=== PATIENT | female | born 1935 | race Caucasian/White ===

== ENCOUNTER 2018-09-29 10:59 | Emergency (ER) | payer MEDICARE, OTHER, SELFPAY ==
[2018-09-29 11:00] VITALS: BP 190/117; PULSE 113; RESP 31; O2SAT 98
--- NOTE | 2018-09-29 11:17 | DI.CT.S_ITS ---
PROCEDURE: CT HEAD/BRAIN WO CON INDICATIONS: cva TECHNIQUE: Noncontrast 4.5 mm thick angled axial sections acquired from the foramen magnum to the vertex, with coronal and sagittal reformats. For radiation dose reduction, the following was used: automated exposure control, adjustment of mA and/or kV according to patient size. COMPARISON: [facility], CT, HEAD WITHOUT CONTRAST, 07/19/2016, 14:10. FINDINGS: Image quality: Excellent. CSF spaces: Basal cisterns are patent. No extra-axial fluid collections. The ventricles are symmetric in size and shape. Brain: Trace subarachnoid hemorrhage is present within the left temporal lobe (series 4, image 42 and series 2, image 14). No intracranial hemorrhage. No mass. There is marked cerebral volume loss for age, with resultant ventricular and sulcal prominence. There are extensive periventricular and deep white matter chronic small vessel ischemic changes. There is intracranial internal carotid artery atherosclerosis. Skull and face: A calcified subcutaneous nodule is redemonstrated over the left calvarium unchanged from the study dated 07/19/16. Calvarium and visualized facial bones appear intact, without suspicious lesions. Sinuses: Visualized sinuses and mastoids are clear. IMPRESSION: 1. Trace subarachnoid hemorrhage as above. This finding was discussed with Dr. Ramirez at 11:28 AM on 09/29/18. 2. Extensive findings likely associated with chronic microvascular ischemic change. Dictated by: Samaria Botello M.D. on 09/29/2018 at 11:25 Approved by: Samaria Botello M.D. on 09/29/2018 at 11:29
--- NOTE | 2018-09-29 11:25 | ED.NEUROSD ---
HPI - Neuro Symptoms/Deficit General Chief Complaint: Neuro Symptoms/Deficit Stated Complaint: MAY BE HAVING STROKE Time Seen by Provider: 09/29/18 11:13 Source: family Mode of arrival: ambulatory Limitations: altered mental status History of Present Illness HPI Narrative: Patient is an 82-year-old female who was brought into the emergency department by her family for concerns of a possible stroke. Is reported by her family this morning that she potentially fell. She is on Coumadin for atrial fibrillation. Patient was complaining of a headache. Also complaining of right-sided weakness. The family states that she has been having right sided weakness with the leg greater than the arm for the past several days. They think that that is why she felt this morning. No interventions prior to arrival. Onset of symptoms approximately 1 hr prior to arrival here in the emergency department. Related Data Allergies Allergy/AdvReac Type Severity Reaction Status Date / Time No Known Drug Allergies Allergy Verified 09/29/18 12:37 Review of Systems Constitutional Denies fever(s), Reports headache(s) and Reports weakness Eyes Comments: No change in her vision ENT Ears, Nose, Mouth, and Throat: Denies dizziness, Reports headache(s) and Denies sore throat Cardiovascular Denies chest pain, Denies palpitations and Denies dyspnea Respiratory Denies dyspnea Gastrointestinal Gastrointestinal: Denies abdominal pain, Denies nausea and Denies vomiting Musculoskeletal Reports abnormal gait and Denies tingling Comments: Right arm Integumentary/Breasts Denies lesions and Denies rash Neurologic Reports abnormal gait, Reports behavioral changes, Reports confusion, Denies dizziness, Reports headache(s), Denies tingling, Denies paresthesias and Reports weakness Psychiatric Reports behavioral changes and Reports confusion Endocrine Denies palpitations Hematologic/Lymphatic Comments: On Coumadin for atrial fibrillation Allergic/Immunologic Denies urticaria PFSH Medical History Atrial fibrillation (Acute) Surgical History No pertinent past surgical history (Acute) Social History caregiver/support person: Yes Exam Initial Vital Signs Initial Vital Signs: Vital Signs Pulse Rate 113 H 09/29/18 11:00 Respiratory Rate 31 H 09/29/18 11:00 Blood Pressure 190/117 H 09/29/18 11:00 Pulse Oximetry 98 09/29/18 11:00 Const General: comfortable, well developed and No acute distress Orientation: alert, awake, oriented to person, oriented to place, not oriented to time and confused HENMT Head: normal to inspection and normocephalic Ears: other (Decreased hearing right ear) Face and sinus: normal facial exam Mouth: oral mucosae normal Eyes Pupils: PERRL Chest Chest: normal inspection of the chest Resp Effort & Inspection: normal respiratory effort Auscultation: clear to auscultation bilaterally Cardio Rate: regular rate Rhythm: abnormal rhythm Pulses: radial pulses present GI Inspection: non-distended Palpation: soft and No firm Skin Lesions: no lesions Rashes: no rashes Neuro General: alert and awake Cognition: normal cognition Motor: other Other: Patient unable to perform finger to nose with bilateral upper extremities. I did see her move all 4 extremities spontaneously however right side was difficult for her to move to command. Patient did have a left-sided gaze palsy however did look 1 time to the right when a family member asked her to. I have some concern as to whether not the patient understood what I was asking her to do. Extrem General: normal to inspection, capillary refill normal and No edema Psych Appearance: grossly normal and well kempt Course Orders Ordered: ED Orders 09/29/18 11:17 CT head/brain wo con Stat 09/29/18 11:30 Basic Metabolic Panel Stat Complete Blood Count AUTO DIFF Stat Partial Thromboplastin Time Stat Prothrombin Time INR Stat 09/29/18 11:34 CT cervical spine wo con Stat Discontinued Medications Labetalol HCl (Trandate) 5 mg IV NOW ONE Stop: 09/29/18 11:39 Last Admin: 09/29/18 11:50 Dose: 5 mg Morphine Sulfate (Morphine) 2 mg IV NOW ONE Stop: 09/29/18 12:56 Vital Signs - 8 hr 09/29/18 11:00 09/29/18 11:50 Pulse Rate 113 H 103 H Respiratory Rate 31 H Blood Pressure 190/117 H 161/117 H Pulse Oximetry 98 MDM - Neuro Symptoms/Deficit Lab Data Attestation: I reviewed the patient's lab results. Result diagrams: 09/29/18 11:30 09/29/18 11:30 Lab Results 09/29/18 09/29/18 09/29/18 Range/Units 11:30 11:30 11:30 WBC 11.2 H (4.5-11.0) X10^3/uL RBC 4.20 (4.0-5.2) X10^6/uL Hgb 13.9 (12.0-16.0) g/dL Hct 42.1 (36-46) % MCV 100.2 H (80-100) fL MCH 33.2 (26-34) PG MCHC 33.1 (30-36) % RDW 13.4 (11.6-14.8) % Plt Count 313 (150-400) X10^3/uL Neut % (Auto) 71.1 (50-75) % Lymph % (Auto) 20.6 L (25-40) % [place] % (Auto) 7.5 (3-14) % Eos % (Auto) 0.4 L (2-4) % Baso % (Auto) 0.4 (0-2) % Neut # (Auto) 8000 H (0094-8510) /uL Lymph # (Auto) 2300 (3022-8318) /uL [place] # (Auto) 800 (0-900) /uL Eos # (Auto) 0 (0-450) /uL Baso # (Auto) 0 (0-100) /uL PT 18.5 H (10.1-12.7) SECONDS INR 1.6 H (0.9-1.3) APTT 30 (26.4-36.2) SECONDS Sodium 141 (137-145) mmol/L Potassium 3.9 (3.4-5.1) mmol/L Chloride 105 (98-107) mmol/L Carbon Dioxide 24 (22-32) mmol/L BUN 21 H (7-17) mg/dL Creatinine 0.70 (0.52-1.04) mg/dL Estimated GFR > 60.0 (>60) mL/min BUN/Creatinine Ratio 30.0 H (6-22) Glucose 110 (80-110) mg/dL Calcium 9.7 (8.4-10.2) mg/dL Point of Care Testing Glucose POC [address]: Radiologist's impression: [address] [address] [address] Scan Report Signed Patient: Batsheva Tidwell BMR#: [id number] : 5Acct:[id number] Age/Sex: 82 / FDate of Service: 09/29/18 Loc: ED Accession Number: [id number] Procedure: CT head/brain wo con Ordering Provider: Edwin Ramirez D.O. PROCEDURE: CT HEAD/BRAIN WO CON INDICATIONS: cva TECHNIQUE: Noncontrast 4.5 mm thick angled axial sections acquired from the foramen magnum to the vertex, with coronal and sagittal reformats. For radiation dose reduction, the following was used: automated exposure control, adjustment of mA and/or kV according to patient size. COMPARISON: [facility], CT, HEAD WITHOUT CONTRAST, 07/19/2016, 14:10. FINDINGS: Image quality: Excellent. CSF spaces: Basal cisterns are patent. No extra-axial fluid collections. The ventricles are symmetric in size and shape. Brain: Trace subarachnoid hemorrhage is present within the left temporal lobe (series 4, image 42 and series 2, image 14). No intracranial hemorrhage. No mass. There is marked cerebral volume loss for age, with resultant ventricular and sulcal prominence. There are extensive periventricular and deep white matter chronic small vessel ischemic changes. There is intracranial internal carotid artery atherosclerosis. Skull and face: A calcified subcutaneous nodule is redemonstrated over the left calvarium unchanged from the study dated 07/19/16. Calvarium and visualized facial bones appear intact, without suspicious lesions. Sinuses: Visualized sinuses and mastoids are clear. IMPRESSION: 1. Trace subarachnoid hemorrhage as above. This finding was discussed with Dr. Ramirez at 11:28 AM on 09/29/18. 2. Extensive findings likely associated with chronic microvascular ischemic change. Dictated by: Samaria Botello M.D. on 09/29/2018 at 11:25 Approved by: Samaria Botello M.D. on 09/29/2018 at 11:29 CT cervical spine: Radiologist's impression: PROCEDURE: CT CERVICAL SPINE WO CON INDICATIONS: fall TECHNIQUE: Noncontrast 3 mm thick sections acquired from the skull base to the T4 level. Sagittal and coronal reformats were then constructed. For radiation dose reduction, the following was used: automated exposure control, adjustment of mA and/or kV according to patient size. COMPARISON: [facility], CT, C-SPINE W/O CONTRAST, 10/07/2013, 17:39. FINDINGS: Image quality: Excellent. Bones: No fractures or dislocations. Moderate to severe degenerative changes present of the cervical spine including intervertebral disc space narrowing, endplate sclerosis, osteophytosis, and subchondral cystic change. Visualized superior ribs are intact. Patient is status post right mastoidectomy. Soft tissues: Prevertebral soft tissues are normal in thickness. No paravertebral hematomas. No apical pneumothoraces. 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 Low-density fluid is present at the ascending thoracic aorta which is incompletely characterized on this limited view of the chest. IMPRESSION: 1. No acute cervical spine injury. 2. Small amount of pericardial fluid adjacent to the ascending thoracic aorta which is incompletely characterized. If there is clinical suspicion for pericardial effusion, echocardiogram maybe helpful. Dictated by: Samaria Botello M.D. on 09/29/2018 at 12:10 Approved by: Samaria Botello M.D. on 09/29/2018 at 12:14 ECG Data Attestation: I personally reviewed and interpreted this ECG as follows: Prior ECG tracings: not available for review Interpretation: Atrial fibrillation Ventricular rate of 1 9 Normal axis Normal QRS Wandering baseline No ST T wave changes MDM Narrative Medical decision making narrative: Patient with a subarachnoid hemorrhage on the left. Described as trace by the radiologist. This does fit with the potential fall that she had this morning. INR is 1.6 today. Was not given reversal here in the emergency department. Initial blood pressure was systolic greater than 190s and diastolic greater than 100. She was given 5 mg labetalol which improved her symptoms. Patient in atrial fibrillation but has a known history of atrial fibrillation. Patient with right-sided neglect. Very difficult to obtain neurologic exam. Was unsure as to whether not the patient understood what I was asking her to do. Family does state that she has had a right sided weakness for the past several days if not longer. They think that that is why she fell this morning. Head CT shows no signs of an ischemic infarct. Given the potential trace subarachnoid patient is not a candidate for tPA. Patient was placed in a cervical collar. Remained in a cervical collar for transport. Patient's neurologic symptoms today do not necessarily fit what I would expect with a trace left-sided subarachnoid. I discussed the case with the trauma attending Dr. Vuong at [facility] who accepts the patient. He did ask me to talk with Neurology. I discussed the case with Dr. Villafana was the Stroke attending who stated that they would see the patient upon arrival and agreed with no tPA. Discussed the transport with the patient and also the family who are bedside. They expressed understanding and agreement. Patient is stable for transport. Discharge Plan Departure Patient Disposition: [facility] Clinical Impression: Subarachnoid hemorrhage, Fall, Atrial fibrillation
[2018-09-29 11:30] VITALS: BP 167/151; PULSE 96; RESP 26; O2SAT 97
--- NOTE | 2018-09-29 11:34 | DI.CT.S_ITS ---
PROCEDURE: CT CERVICAL SPINE WO CON INDICATIONS: fall TECHNIQUE: Noncontrast 3 mm thick sections acquired from the skull base to the T4 level. Sagittal and coronal reformats were then constructed. For radiation dose reduction, the following was used: automated exposure control, adjustment of mA and/or kV according to patient size. COMPARISON: [facility], CT, C-SPINE W/O CONTRAST, 10/07/2013, 17:39. FINDINGS: Image quality: Excellent. Bones: No fractures or dislocations. Moderate to severe degenerative changes present of the cervical spine including intervertebral disc space narrowing, endplate sclerosis, osteophytosis, and subchondral cystic change. Visualized superior ribs are intact. Patient is status post right mastoidectomy. Soft tissues: Prevertebral soft tissues are normal in thickness. No paravertebral hematomas. No apical pneumothoraces. 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 Low-density fluid is present at the ascending thoracic aorta which is incompletely characterized on this limited view of the chest. IMPRESSION: 1. No acute cervical spine injury. 2. Small amount of pericardial fluid adjacent to the ascending thoracic aorta which is incompletely characterized. If there is clinical suspicion for pericardial effusion, echocardiogram maybe helpful. Dictated by: Samaria Botello M.D. on 09/29/2018 at 12:10 Approved by: Samaria Botello M.D. on 09/29/2018 at 12:14
[2018-09-29 11:42] LABS: Add Manual Diff / Slide Review NO; Basophils Absolute Auto 0 /uL (0-100); Basophils Percent Auto 0.4 % (0-2); Eosinophils Absolute Auto 0 /uL (0-450); Eosinophils Percent Auto 0.4 % (2-4); Hematocrit 42.1 % (36-46); Hemoglobin 13.9 g/dL (12.0-16.0); Lymphocytes Absolute Auto 2300 /uL (1100-4500); Lymphocytes Percent Auto 20.6 % (25-40); Mean Corpuscular HGB Conc 33.1 % (30-36); Mean Corpuscular Hemoglobin 33.2 PG (26-34); Mean Corpuscular Volume 100.2 fL (80-100); Monocytes Absolute Auto 800 /uL (0-900); Monocytes Percent Auto 7.5 % (3-14); Neutrophils Absolute Auto 8000 /uL (1500-7000); Neutrophils Percent Auto 71.1 % (50-75); Platelet Count 313 X10^3/uL (150-400); Red Cell Distribution Width 13.4 % (11.6-14.8); White Blood Cell Count 11.2 X10^3/uL (4.5-11.0)
[2018-09-29 11:50] VITALS: BP 161/117; PULSE 103
[2018-09-29] MEDS: LABETALOL 20 MG/4 ML SYRINGE 5 MG IV (11:50)
[2018-09-29 11:51] LABS: INR 1.6 (0.9-1.3); Prothrombin Time 18.5 SECONDS (10.1-12.7)
[2018-09-29 11:54] LABS: PTT Partial Thromboplastin Tim 30 SECONDS (26.4-36.2)
[2018-09-29 11:55] LABS: Blood Urea Nitrogen 21 mg/dL (7-17); Calcium 9.7 mg/dL (8.4-10.2); Carbon Dioxide 24 mmol/L (22-32); Chloride 105 mmol/L (98-107); Estimated Glomerular Filt Rate > 60.0 mL/min (>60); Glucose 110 mg/dL (80-110); HEMOLYSIS < 15 (0-50); Potassium 3.9 mmol/L (3.4-5.1); Sodium 141 mmol/L (137-145)
[2018-09-29 12:30] VITALS: BP 160/91; RESP 20; O2SAT 95
[2018-09-29 13:00] VITALS: BP 153/84; PULSE 102
[2018-09-29 13:28] VITALS: BP 153/84; PULSE 100; RESP 22; O2SAT 93
[2018-09-29] MEDS: MORPHINE 4 MG/ML INJ 2 MG IV (13:45)
[2018-09-29] MEDS: ONDANSETRON 4 MG/2 ML INJ IV (13:52)
== END 2018-09-29 13:50 | disposition short-term general hospital (02) ==
PROVIDERS: Emergency Provider Emergency Medicine; Family Provider Family Medicine; PCP Family Medicine
DX: S06.6X9A Traumatic subarachnoid hemorrhage with loss of consciousness of unspecified duration, initial encounter (principal); W18.30XA Fall on same level, unspecified, initial encounter; I48.91 Unspecified atrial fibrillation; Z79.01 Long term (current) use of anticoagulants
CPT/HCPCS: 36591; 70450; 72125; 80048; 82962; 85025; 85610; 85730; 93005; 96374; 96375; 99283; 99291; 99292; J2270; J2405

== ENCOUNTER 2022-03-06 10:22 | Emergency (ER) | payer MEDICARE, OTHER, SELFPAY ==
[2022-03-06] VITALS (15 sets, daily range): BP systolic 136–163; BP diastolic 63–113; PULSE 79–99; RESP 11–25; TEMP 37.7; O2SAT 91–96; BMI 21.0
--- NOTE | 2022-03-06 11:01 | DI.CT.S_ITS ---
PROCEDURE: CT HEAD/BRAIN WO CON INDICATIONS: stroke TECHNIQUE: Noncontrast 4.5 mm thick angled axial sections acquired from the foramen magnum to the vertex, with coronal and sagittal reformats. For radiation dose reduction, the following was used: automated exposure control, adjustment of mA and/or kV according to patient size. COMPARISON: None. FINDINGS: Image quality: Excellent. CSF spaces: Basal cisterns are patent. No extra-axial fluid collections. The ventricles are symmetric in size and shape. Brain: There is loss of dennis-white matter differentiation within the superior aspect of the left frontoparietal lobe. There is mild sulcal effacement. Additional region of dennis-white matter loss with slight sulcal effacement of the left occipital lobe. Adjacent region of increased density consistent with acute hemorrhage is noted measuring 1.3 x 0.8 cm. Additional region of hemorrhage is noted within the medial right posterior temporal lobe measuring 0.9 x 1.5 cm. There is cerebral volume loss for age, with resultant ventricular and sulcal prominence. There are periventricular and deep white matter chronic small vessel ischemic changes. There is intracranial vascular atherosclerosis. Skull and face: Calvarium and visualized facial bones appear intact, without suspicious lesions. Soft tissue calcified nodular density along the right cranial vertex. Sinuses: There is opacification of the left maxillary sinus with periosteal wall thickening noted adjacently. Mild mucosal disease of the ethmoid air cells. IMPRESSION: Findings concerning for multifocal infarction with findings of dennis-white matter loss of the superior left frontoparietal region as well as the left occipital lobe. There is hemorrhagic conversion of the left frontoparietal lobe as well as additional region of acute hemorrhage within the medial right temporal lobe. These findings were discussed with the ordering provider Dr. Nathaniel Rick by Dr. Venkata Casey over the telephone at approximately 10:40 a.m. [place] Standard time on 03/06/2022. Findings of chronic sinusitis of the left maxillary sinus. Dictated by: Venkata Casey D.O. on 03/06/2022 at 10:34 Approved by: Venkata Casey D.O. on 03/06/2022 at 10:47
[2022-03-06 11:18] LABS: Add Manual Diff / Slide Review NO; Basophils Absolute Auto 0 /uL (0-100); Basophils Percent Auto 0.6 % (0-2); Eosinophils Absolute Auto 0 /uL (0-450); Hematocrit 39.7 % (36-46); Hemoglobin 13.3 g/dL (12.0-16.0); Lymphocytes Absolute Auto 1600 /uL (1100-4500); Lymphocytes Percent Auto 25.1 % (25-40); Mean Corpuscular HGB Conc 33.4 % (30-36); Mean Corpuscular Hemoglobin 33.2 PG (26-34); Mean Corpuscular Volume 99.3 fL (80-100); Monocytes Absolute Auto 1000 /uL (0-900); Neutrophils Absolute Auto 3800 /uL (1500-7000); Neutrophils Percent Auto 58.3 % (50-75); Platelet Count 254 X10^3/uL (150-400); Red Cell Distribution Width 14.2 % (11.6-14.8); White Blood Cell Count 6.5 X10^3/uL (4.5-11.0)
[2022-03-06 11:27] LABS: Alanine Aminotransferase 49 IU/L (<35); Albumin 4.3 g/dL (3.5-5.0); Alkaline Phosphatase 111 U/L (38-126); Aspartate Aminotransferase 61 IU/L (14-36); BUN Creatinine Ratio 23.3 (6-22); Bilirubin Total 0.4 mg/dL (0.2-1.3); Blood Urea Nitrogen 20 mg/dL (7-17); Carbon Dioxide 26 mmol/L (22-32); Chloride 97 mmol/L (98-107); Creatine Kinase 145 U/L (30-135); Estimated Glomerular Filt Rate > 60 mL/min (>60); Ethanol (ETOH) < 10 mg/dL; Globulin 4.1 g/dL (1.7-4.1); Glucose 95 mg/dL (80-110); HEMOLYSIS < 15 (0-50); Sodium 135 mmol/L (137-145); Total Protein 8.4 g/dL (6.3-8.2)
[2022-03-06] MEDS: SODIUM CHLORIDE 0.9% 1,000 ML 150 ML IV (11:27)
[2022-03-06 11:38] LABS: Troponin I < 0.012 ng/mL (0.01-0.034)
[2022-03-06 11:42] LABS: CKMB % Relative Index 1.7 % (1.5-5.0); Creatine Kinase MB 2.45 ng/mL (<2.37)
[2022-03-06 12:00] LABS: COVID19 -Nasal RAPID POSITIVE (Negative)
--- NOTE | 2022-03-06 12:00 | PC.NURSE ---
Covid Pos++ per [facility] in lab @1200, physician notified and confirmed.
[2022-03-06] MEDS: PROTHROMBIN CPLX(PCC)4FACT 2,000 UNIT in ISOOSMOTIC VEHICLE 0 ML 375.574 UNIT IV (12:36)
[2022-03-06 13:41] LABS: Appearance Urine UA CLEAR; Bilirubin Urine UA NEGATIVE (NEGATIVE); Color Urine UA YELLOW; Glucose Urine UA NEGATIVE (Negative); Ketones Urine UA 1+ (NEGATIVE); Leukocyte Esterase Urine UA NEGATIVE (NEGATIVE); Nitrite Urine UA NEGATIVE (Negative); Occult Blood Urine UA 1+ (Negative); Protein Urine UA 1+ (Negative); Urobilinogen Urine UA 0.2 E.U./dL (0.2)
[2022-03-06 13:50] LABS: Amorphous Sediment Urine 1+; Bacteria Urine Occasional (0-1); Culture Indicated Urine Cult Not Indicated; RBC Urine 1-5/HPF (0-5/HPF); Squamous Epithelial Cell Urine 1-5 /HPF (0-5/HPF); WBC Urine 0-1/HPF (0-5/HPF)
--- NOTE | 2022-03-06 20:56 | ED_ITS ---
HPI - Weakness General Chief complaint: Weakness Stated complaint: weak, lathergic, fell on monday & this morning,TIA Time Seen by Provider: 03/06/22 10:32 Source: patient Mode of arrival: Ambulatory History of Present Illness HPI Narrative: Family accompanies the patient to the ED and says that the patient had a relatively normal day on Monday but on Monday at about 3 in the morning she was found on the floor incontinent of urine. A granddaughter lives in the home with her and checks on her hourly through the night. When they tried to get her back in bed early Monday he was noted that her right lower extremity which is normally somewhat weak, was much more weak than expected. She needed quite a bit of assistance to get back in bed. No medical attention was sought at that time and during the day she seemed to be improving so no further thought was given to evaluation during the day on Monday. Early in the morning this morning Monday, she again was found on the floor around 3 in the morning incontinent of stool and urine and was found to be unable to control her trunk and seemed to list to the right quite a bit. Today the daughter came to the house to evaluate as well and found that she was really profoundly more weak on the right side specifically in her leg. The patient complains of earach e. So the last known well was Monday. Related Data Allergies Allergy/AdvReac Type Severity Reaction Status Date / Time No Known Drug Allergies Allergy Verified 09/29/18 12:37 Review of Systems Review of Systems Narrative: Review of systems is significantly limited because the patient is seems to not completely be aware of her self. She denies any symptoms of illness other than earache. Patient History Medical History (Updated 03/06/22 @ 17:37 by Nathaniel Cali MD) Atrial fibrillation Surgical History (Updated 09/29/18 @ 13:00 by Edwin Ramirez DO) No pertinent past surgical history Social History (Updated 09/29/18 @ 13:00 by Edwin Ramirez DO) caregiver/support person: Yes Smoking Status: Never smoker Smoking Status: Never smoker Substance Use Type: does not use Exam Narrative Exam Narrative: GENERAL: Alert, cooperative and in no distress. HEAD: Atraumatic. Normocephalic. EYES: Sclera are clear without icterus. Extraocular movements are full. ENT: No rhinorrhea. Oropharynx is moist. Mouth exam is benign. 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 No erythema or drainage. Left ear drum is not visualized because of cerumen impaction. NECK: Supple. Full range of motion. CARDIOVASCULAR: Normal rate and rhythm without murmur gallop or rub. RESPIRATORY: Clear to auscultation. Breath sounds equal bilaterally. No wheezes, rales, or rhonchi. GASTROINTESTINAL: Abdomen soft, non-tender, nondistended. EXTREMITIES: No edema, full range of motion. No obvious trauma. BACK: Normal inspection, no CVA tenderness. NEURO: NIH stroke score of 3. Two points for weakness in the right lower extremity. 1 point for not stating the year properly, one point for decreased sharp sensation in the right lower extremity. SKIN: No rash or erythema of visible areas PSYCH: Normally oriented. Normal range of affect. Appropriate behavior Initial Vital Signs Initial Vital Signs: Vital Signs Temperature 100 F H 03/06/22 10:25 Pulse Rate 87 03/06/22 10:25 Respiratory Rate 20 03/06/22 10:25 Blood Pressure 143/108 H 03/06/22 10:25 Pulse Oximetry 95 03/06/22 10:25 Oxygen Delivery Method 03/06/22 10:25 Scores NIH Stroke Scale Level of Conciousness: Alert, keenly responsive Ask month/age: Answers one question correctly, intubated follow commands Open/close eyes, close hand: Performs both tasks correctly Best gaze horizontal: Normal Visual freed: No visual loss Facial palsy: Normal symetrical movement Left arm drift: No drift for full 10 sec Right arm drift: No drift for full 10 sec Left leg drift: No drift for full 5 sec Right leg drift: Some effort against gravity, cannot maintain, drifts down to bed Limb ataxia: Absent Sensory on face/arms/legs: Mild to moderate sensory loss, can tell touch Best language: No aphasia, normal Dysarthria: Normal Extinction or inattention: No abnormality Total NIH Stroke scale score: 4 Course Course Course Narrative: 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 The patient and the family would like potential intervention if indicated so transfer to a tertiary facility where neurosurgery is available is sought. Orders Ordered: ED Orders 03/06/22 12:43 Urinalysis and Microscopic Stat Discontinued Medications Sodium Chloride (Normal Saline 0.9%) 1,000 mls @ 150 mls/hr IV CONT JARED Last Infusion: 03/06/22 17:34 Dose: 0 mls/hr Documented By: Admin: 03/06/22 11:27 Dose: 150 mls/hr Documented By: JAYDE Prothrombin Complex Concent ( Human) 2,000 unit/Miscellaneous 80 mls @ 375.574 mls/hr IV NOW ONE; Protocol Stop: 03/06/22 12:14 Last Infusion: 03/06/22 13:01 Dose: 0 unit/kg/min, 0 mls/hr Documented By: Admin: 03/06/22 12:36 Dose: 3 unit/kg/min, 375.574 mls/hr Documented By: JAYDE Consultations Consultation #1: Discussed the case with Dr. Woods from [facility]. Vital Signs Vital signs: Vital Signs - 8 hr 03/06/22 13:00 03/06/22 13:30 03/06/22 13:31 Pulse Rate 95 H 86 Blood Pressure 152/68 H Pulse Oximetry 96 95 03/06/22 13:31 03/06/22 14:00 03/06/22 14:01 Pulse Rate 90 79 Blood Pressure 136/63 Pulse Oximetry 95 93 03/06/22 14:01 03/06/22 14:30 03/06/22 14:30 Pulse Rate 85 89 Blood Pressure 155/72 H Pulse Oximetry 93 92 MDM - Weakness Lab Data Result diagrams: 03/06/22 11:02 03/06/22 11:02 Labs: Lab Results 03/06/22 03/06/22 03/06/22 Range/Units 11:02 11:02 11:32 WBC 6.5 (4.5-11.0) X10^3/uL RBC 4.00 (4.0-5.2) X10^6/uL Hgb 13.3 (12.0-16.0) g/dL Hct 39.7 (36-46) % MCV 99.3 (80-100) fL MCH 33.2 (26-34) PG MCHC 33.4 (30-36) % RDW 14.2 (11.6-14.8) % Plt Count 254 (150-400) X10^3/uL Neut % (Auto) 58.3 (50-75) % Lymph % (Auto) 25.1 (25-40) % [place] % (Auto) 16.0 H (3-14) % Eos % (Auto) 0.0 L (2-4) % Baso % (Auto) 0.6 (0-2) % Neut # (Auto) 3800 (7432-6799) /uL Lymph # (Auto) 1600 (8365-9323) /uL [place] # (Auto) 1000 H (0-900) /uL Eos # (Auto) 0 (0-450) /uL Baso # (Auto) 0 (0-100) /uL Sodium 135 L (137-145) mmol/L Potassium 4.0 (3.4-5.1) mmol/L Chloride 97 L (98-107) mmol/L Carbon Dioxide 26 (22-32) mmol/L BUN 20 H (7-17) mg/dL Creatinine 0.86 (0.52-1.04) mg/dL Estimated GFR > 60 (>60) mL/min BUN/Creatinine Ratio 23.3 H (6-22) Glucose 95 (80-110) mg/dL Calcium 9.0 (8.4-10.2) mg/dL Total Bilirubin 0.4 (0.2-1.3) mg/dL AST 61 H (14-36) IU/L ALT 49 H (<35) IU/L Alkaline Phosphatase 111 (38-126) U/L Total Creatine Kinase 145 H (30-135) U/L CK-MB (CK-2) 2.45 H (<2.37) ng/mL CK-MB (CK-2) Rel Index 1.7 (1.5-5.0) % Troponin I < 0.012 (0.01-0.034) ng/mL Total Protein 8.4 H (6.3-8.2) g/dL Albumin 4.3 (3.5-5.0) g/dL Globulin 4.1 (1.7-4.1) g/dL Albumin/Globulin Ratio 1.0 (1.0-2.8) Urine Color Urine Appearance Urine pH (4.5-8.0) Ur Specific [place] (1.000-1.035) Urine Protein (Negative) Urine Glucose (UA) (Negative) g/dL Urine Ketones (NEGATIVE) Urine Occult Blood (Negative) Urine Nitrate (Negative) Urine Bilirubin (NEGATIVE) Urine Urobilinogen (0.2) E.U./dL Ur Leukocyte Esterase (NEGATIVE) Urine RBC (0-5/HPF) Urine WBC (0-5/HPF) Ur Squamous Epith Cells (0-5/HPF) Amorphous Sediment Urine Bacteria (None) Ur Culture Indicated? Ethyl Alcohol < 10 ( - 10) mg/dL SARS-CoV-2 (PCR) Positive H (Negative) 03/06/22 Range/Units 12:43 WBC (4.5-11.0) X10^3/uL RBC (4.0-5.2) X10^6/uL Hgb (12.0-16.0) g/dL Hct (36-46) % MCV (80-100) fL MCH (26-34) PG MCHC (30-36) % RDW (11.6-14.8) % Plt Count (150-400) X10^3/uL Neut % (Auto) (50-75) % Lymph % (Auto) (25-40) % [place] % (Auto) (3-14) % Eos % (Auto) (2-4) % Baso % (Auto) (0-2) % Neut # (Auto) (1247-6196) /uL Lymph # (Auto) (9825-3650) /uL [place] # (Auto) (0-900) /uL Eos # (Auto) (0-450) /uL Baso # (Auto) (0-100) /uL Sodium (137-145) mmol/L Potassium (3.4-5.1) mmol/L Chloride (98-107) mmol/L Carbon Dioxide (22-32) mmol/L BUN (7-17) mg/dL Creatinine (0.52-1.04) mg/dL Estimated GFR (>60) mL/min BUN/Creatinine Ratio (6-22) Glucose (80-110) mg/dL Calcium (8.4-10.2) mg/dL Total Bilirubin (0.2-1.3) mg/dL AST (14-36) IU/L ALT (<35) IU/L Alkaline Phosphatase (38-126) U/L Total Creatine Kinase (30-135) U/L CK-MB (CK-2) (<2.37) ng/mL CK-MB (CK-2) Rel Index (1.5-5.0) % Troponin I (0.01-0.034) ng/mL Total Protein (6.3-8.2) g/dL Albumin (3.5-5.0) g/dL Globulin (1.7-4.1) g/dL Albumin/Globulin Ratio (1.0-2.8) Urine Color Yellow Urine Appearance Clear Urine pH 5.0 (4.5-8.0) Ur Specific [place] 1.010 (1.000-1.035) Urine Protein 1+ H (Negative) Urine Glucose (UA) Negative (Negative) g/dL Urine Ketones 1+ H (NEGATIVE) Urine Occult Blood 1+ H (Negative) Urine Nitrate Negative (Negative) Urine Bilirubin Negative (NEGATIVE) Urine Urobilinogen 0.2 (0.2) E.U./dL Ur Leukocyte Esterase Negative (NEGATIVE) Urine RBC 1-5/hpf (0-5/HPF) Urine WBC 0-1/hpf (0-5/HPF) Ur Squamous Epith Cells 1-5 /hpf (0-5/HPF) Amorphous Sediment 1+ Urine Bacteria Occasional (0-1) (None) Ur Culture Indicated? Cult not indicated Ethyl Alcohol ( - 10) mg/dL SARS-CoV-2 (PCR) (Negative) Urine Dip Bedside Urine Glucose Negative Bedside Urine Bilirubin - Negative Bedside Urine Ketone +/- 5 Urine Specific [place] 1.015 Bedside Urine Occult Blood +/- Bedside Urine pH 6 Bedside Urine Protein + 30 Bedside Urine Urobilinogen - Negative Bedside Urine Nitrite - Negative Bedside Urine Leukocytes - Negative Esterase Imaging Data CT scan - head: Radiologist Impression: [address] [address] [address] Scan Report Signed Patient: Batsheva Tidwell MR#: [id number] : 1935 Acct:[id number] Age/Sex: 86 / F Date of Service: 03/06/22 Loc: ED Accession Number: [id number] ?? Procedure: CT head/brain wo con Ordering Provider: Nathaniel Cali MD PROCEDURE:? CT HEAD/BRAIN WO CON ? INDICATIONS:? stroke ? TECHNIQUE:? Noncontrast 4.5 mm thick angled axial sections acquired from the foramen magnum to the vertex, with coronal and sagittal reformats.? For radiation dose reduction, the following was used:? automated exposure control, adjustment of mA and/or kV according to patient size.? ? COMPARISON:? None. ? FINDINGS:? Image quality:? Excellent.? ? CSF spaces:? Basal cisterns are patent.? No extra-axial fluid collections.? The ventricles are symmetric in size and shape.? ? Brain:? There is loss of dennis-white matter differentiation within the superior aspect of the left frontoparietal lobe.? There is mild sulcal effacement.? Additional region of dennis-white matter loss with slight sulcal effacement of the left occipital lobe.? Adjacent region of increased density consistent with acute hemorrhage is noted measuring 1.3 x 0.8 cm.? Additional region of hemorrhage is noted within the medial right posterior temporal lobe measuring 0.9 x 1.5 cm.? There is cerebral volume loss for age, with resultant ventricular and sulcal prominence.? There are periventricular and deep white matter chronic small vessel ischemic changes.? There is intracranial vascular atherosclerosis. ? Skull and face:? Calvarium and visualized facial bones appear intact, without suspicious lesions.? Soft tissue calcified nodular density along the right cranial vertex. ? Sinuses:? There is opacification of the left maxillary sinus with periosteal wall thickening noted adjacently.? Mild mucosal disease of the ethmoid air cells. ? IMPRESSION:? ? Findings concerning for multifocal infarction with findings of dennis-white matter loss of the superior left frontoparietal region as well as the left occipital lobe.? There is hemorrhagic conversion of the left frontoparietal lobe as well as additional region of acute hemorrhage within the medial right temporal lobe. ? These findings were discussed with the ordering provider Dr. Nathaneil Rick by Dr. Venkata Casey over the telephone at approximately 10:40 a.m. [place] Standard time on 03/06/2022. ? 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 ? Dictated by: Venkata Casey D.O. on 03/06/2022 at 10:34 ? ? Approved by: Venkata Casey D.O. on 03/06/2022 at 10:47 ? MDM Narrative Medical decision making narrative: This patient is not a tPA candidate because of time line and because of anticoagulants. Because of the hemorrhagic stroke we did administer Kcentra. No blood pressure management was required as she maintained a systolic pressure just under 160 mmHg. We did not do CT angiography because I did not want to delay the transfer and she is not a candidate for interventional radiology treatment of a large vessel occlusion as she is outside the time window for that as well. Critical Care Time Critical Care Time Critical Care Time: Yes Total Critical Care Time: 45 Attestation: Critical care time is for interpretation of results, obtaining history from patient and surrogate, assessing response to treatments, discussion with consultants. Discharge Plan Departure Patient Disposition: [facility] Clinical Impression: Stroke Referrals: Miguel Sprague MD [Primary Care Provider] -
== END 2022-03-06 15:37 | disposition short-term general hospital (02) ==
PROVIDERS: Emergency Provider Family Medicine Addiction Medicine; Family Provider Family Medicine; PCP Family Medicine
DX: I61.9 Nontraumatic intracerebral hemorrhage, unspecified (principal); Z79.01 Long term (current) use of anticoagulants; U07.1 COVID-19
CPT/HCPCS: 36415; 70450; 80053; 80320; 81001; 81003; 82550; 82553; 84484; 85025; 87635; 96365; 99284; 99291; C9803; J7168

== ENCOUNTER 2022-04-01 22:15 | Emergency (ER) | payer MEDICARE, OTHER, SELFPAY ==
[2022-04-01 22:25] VITALS: BP 153/96; PULSE 91; RESP 19; TEMP 36.8; O2SAT 95
--- NOTE | 2022-04-01 22:25 | DI.CT.S_ITS ---
PROCEDURE: CT ABDOMEN PELVIS W CON INDICATIONS: abd pain, lower abd TECHNIQUE: After the administration of IV contrast, axial sections were acquired from the lung bases to the pubic symphysis. Coronal and sagittal reformats were performed. For radiation dose reduction, the following was used: automated exposure control, adjustment of mA and/or kV according to patient size. COMPARISON: [facility], CT, CHEST/ABDOMEN WITH AND WITHOUT CONTRAST, 03/01/2012, 22:23. FINDINGS: Image quality: Excellent. Lung bases: There is right posterior pleural thickening with associated plaque-like pleural calcification redemonstrated. Findings likely represent sequelae of prior trauma or infection. In the right lower lobe, there is a 0.7 cm pulmonary nodule on series 5, image 12 which appears unchanged compared to the prior study given differences in technique. Heart: Heart size is mildly enlarged. ABDOMEN: Liver: Multiple small hypodense foci are demonstrated throughout the liver. The findings are too small to characterize but likely represent small cysts or biliary hamartomas. Gallbladder: Within normal limits without calcified gallstones. Biliary ducts: No biliary ductal dilatation. Pancreas: There is a small oval cystic lesion within the pancreatic head measuring approximately 0.6 cm on series 2, image 33. This appears minimally increased in size from 0.5 cm previously. Spleen: Normal in size. Adrenal Glands: No adrenal nodules. Kidneys and Ureters: No hydronephrosis. There are heterogeneous areas of enhancement in the left kidney inferiorly with peripheral regions of non enhancement. 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 No associated perinephric stranding. The right kidney demonstrates no hydronephrosis. There are few small right renal cysts. Stomach and Bowel: Stomach, small bowel loops, and colon are normal in caliber and wall thickness. No pericecal inflammatory changes to suggest appendicitis. Peritoneum: No abnormal intraperitoneal fluid. No free air. Ventral Wall: No hernia. Abdominal Nodes: No retroperitoneal or mesenteric adenopathy by size criteria. Vessels: Aorta and inferior vena cava are normal in size. PELVIS: Pelvic Organs: The uterus is surgically absent. Bladder: Unremarkable. Pelvic Nodes: No enlarged lymph nodes. Miscellaneous: No inguinal hernias are seen. Bones: Visualized osseous structures demonstrate no suspicious focal lesions. IMPRESSION: 1. Heterogeneous enhancement of the left kidney with peripheral areas of non enhancement. 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 The differential includes pyelonephritis although this is considered less likely in the absence of associated perinephric stranding. Recommend correlation clinically. 2. 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 A follow-up CT may be performed in 2 years to demonstrate stability if clinically indicated. Dictated by: Paulie Cline M.D. on 04/01/2022 at 23:56 Approved by: Paulie Cline M.D. on 04/02/2022 at 0:05
--- NOTE | 2022-04-01 22:28 | ED_ITS ---
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 Patient presents with complaint of lower abdominal pain she also describes some bilateral lower back discomfort. She denies fevers she states she is had some nausea and vomiting but describes it more as dry heaves. She denies any chest pain or shortness of breath. No syncope. Patient tells me she is had several loose bowel movements, denies melena or hematochezia, denies any dysuria, urgency or frequency or difficulty with urination. She denies any vaginal bleeding or discharge. She states abdominal pain started in the last day. Patient also notes that her left eye feels irritated especially like there is something stuck underneath the eyelid. She denies any discharge. She denies prior surgeries. No known drug allergies. She states she used to take Eliquis but denies currently. She is unsure of her other prescription medications. Denies tobacco, alcohol or illicit. States her primary care is Dr. Sprague. Patient states she lives with her [id number]. Related Data Previous Rx's Medication Instructions Recorded cephalexin 500 mg capsule 500 mg PO BID #10 caps 04/02/22 erythromycin 5 mg/gram (0.5 %) eye 0.5 inch EYE-LEFT BID 5 days #3.5 04/02/22 ointment grams Allergies Allergy/AdvReac Type Severity Reaction Status Date / Time No Known Drug Allergies Allergy Verified 09/29/18 12:37 Review of Systems Review of Systems ROS Unobtainable: All systems reviewed & are unremarkable except as noted in HPI and below Patient History Medical History Atrial fibrillation Surgical History No pertinent past surgical history Social History caregiver/support person: Yes Smoking Status: Never smoker Smoking Status: Never smoker alcohol intake frequency: 0-2 drinks per day Substance Use Type: does not use Exam Narrative Exam Narrative: GEN: well nourished, well appearing female, alert and oriented, patient appears to be in mild distress. HEENT: Atraumatic, pupils are equal round reactive to light, extraocular movements are intact, patient has swelling of the upper eyelid underneath consistent with chalazion, no foreign body, no injection of the conjunctiva, nares are clear, TMs are clear with no fluid, there is no conjunctival pallor. Throat is clear without any exudates, erythema, tonsillar enlargement or uvular deviation HEART: Regular rate and rhythm without murmur, clicks, rubs. pulses are equal in upper and lower extremities LUNGS:Lungs clear to auscultation, no wheezes, rales, crackles, chest moves symmetrically ABD:bowel sounds normal, soft, mild bilateral lower quadrant tenderness, no guarding, rebound, rigidity, no masses noted, no hepatosplenomegaly, no pulsatile mass, no bruit. :No CVA tenderness MSCL: Non-tender, no muscle atrophy, muscles strength 5/5 upper and lower extremities, full range of motion, normal gait NEURO:CN 2-12 intact, sensation normal SKIN: No rash, erythema or other skin changes Initial Vital Signs Initial Vital Signs: Vital Signs Temperature 98.2 F 04/01/22 22:25 Pulse Rate 91 H 04/01/22 22:25 Respiratory Rate 19 04/01/22 22:25 Blood Pressure 153/96 H 04/01/22 22:25 Pulse Oximetry 95 04/01/22 22:25 Oxygen Delivery Method 04/01/22 22:25 Course Orders Ordered: Discontinued Medications Cephalexin HCl (Cephalexin 250 Mg Capsule) 500 mg PO NOW ONE Stop: 04/02/22 00:56 Last Admin: 04/02/22 01:27 Dose: 500 mg Documented By: DAVID Erythromycin (Erythromycin Ophth 1 Gm Oint) 1 applic EYE-LEFT NOW ONE Stop: 04/01/22 22:26 Last Admin: 04/01/22 22:36 Dose: 1 applic Documented By: DENNY Sodium Chloride (Normal Saline 0.9%) 1,000 mls @ 1,000 mls/hr IV BOLUS ONE Stop: 04/01/22 23:24 Last Infusion: 04/02/22 00:26 Dose: 0 mls/hr Documented By: Admin: 04/01/22 22:36 Dose: 1,000 mls/hr Documented By: DENNY Ketorolac Tromethamine (Ketorolac 30 Mg/Ml Vial) 15 mg IV NOW ONE Stop: 04/01/22 22:26 Last Admin: 04/01/22 22:36 Dose: 15 mg Documented By: DENNY Ketorolac Tromethamine (Ketorolac 30 Mg/Ml Vial) 15 mg IV NOW ONE Stop: 04/02/22 07:26 Last Admin: 04/02/22 07:35 Dose: 15 mg Documented By: JAMES Ondansetron HCl (Ondansetron 4 Mg Odt) 4 mg SL NOW ONE Stop: 04/02/22 07:44 Last Admin: 04/02/22 07:46 Dose: 4 mg Documented By: JAMES Vital Signs Vital signs: Vital Signs - 8 hr 04/01/22 22:25 04/01/22 23:00 04/01/22 23:30 Temperature 98.2 F Pulse Rate 91 H 81 Respiratory Rate 19 Blood Pressure 153/96 H Pulse Oximetry 95 94 92 Oxygen Delivery Method Room Air 04/01/22 23:41 04/01/22 23:41 04/01/22 23:41 Temperature Pulse Rate 81 84 Respiratory Rate 17 Blood Pressure 132/63 132/63 Pulse Oximetry 97 95 Oxygen Delivery Method Room Air 04/02/22 00:00 04/02/22 00:01 04/02/22 00:01 Temperature Pulse Rate 92 H 94 H Respiratory Rate Blood Pressure 125/58 L Pulse Oximetry 95 95 Oxygen Delivery Method 04/02/22 00:30 04/02/22 00:30 04/02/22 01:00 Temperature Pulse Rate 91 H Respiratory Rate Blood Pressure 158/77 H 144/68 H Pulse Oximetry 96 Oxygen Delivery Method 04/02/22 01:00 04/02/22 01:30 04/02/22 01:30 Temperature Pulse Rate 70 87 Respiratory Rate Blood Pressure 135/72 Pulse Oximetry 95 96 Oxygen Delivery Method MDM - Abdominal Pain Lab Data Result diagrams: 04/01/22 22:35 04/01/22 22:35 Labs: Lab Results 04/01/22 04/01/22 04/01/22 Range/Units 22:35 22:35 22:40 WBC 8.4 (4.5-11.0) X10^3/uL RBC 3.71 L (4.0-5.2) X10^6/uL Hgb 12.4 (12.0-16.0) g/dL Hct 37.0 (36-46) % MCV 99.9 (80-100) fL MCH 33.4 (26-34) PG MCHC 33.4 (30-36) % RDW 14.4 (11.6-14.8) % Plt Count 296 (150-400) X10^3/uL Neut % (Auto) 66.8 (50-75) % Lymph % (Auto) 23.4 L (25-40) % Hudspeth % (Auto) 9.0 (3-14) % Eos % (Auto) 0.6 L (2-4) % Baso % (Auto) 0.2 (0-2) % Neut # (Auto) 5600 (2150-8396) /uL Lymph # (Auto) 2000 (6738-3834) /uL [place] # (Auto) 800 (0-900) /uL Eos # (Auto) 100 (0-450) /uL Baso # (Auto) 0 (0-100) /uL Sodium 139 (137-145) mmol/L Potassium 3.8 (3.4-5.1) mmol/L Chloride 104 (98-107) mmol/L Carbon Dioxide 26 (22-32) mmol/L BUN 20 H (7-17) mg/dL Creatinine 0.65 (0.52-1.04) mg/dL Estimated GFR > 60 (>60) mL/min BUN/Creatinine Ratio 30.8 H (6-22) Glucose 130 H (80-110) mg/dL Calcium 9.5 (8.4-10.2) mg/dL Total Bilirubin 0.3 (0.2-1.3) mg/dL AST 37 H (14-36) IU/L ALT 24 (<35) IU/L Alkaline Phosphatase 90 (38-126) U/L Total Protein 7.6 (6.3-8.2) g/dL Albumin 3.9 (3.5-5.0) g/dL Globulin 3.7 (1.7-4.1) g/dL Albumin/Globulin Ratio 1.1 (1.0-2.8) Lipase 152 (23-300) U/L Urine RBC (0-5/HPF) Urine WBC (0-5/HPF) Ur Squamous Epith Cells (0-5/HPF) Urine Bacteria (None) Granular Casts (None) Urine Mucus (Negative) Urine Yeast (None) Ur Culture Indicated? SARS-CoV-2 (PCR) Positive H (Negative) 04/02/22 Range/Units 00:25 WBC (4.5-11.0) X10^3/uL RBC (4.0-5.2) X10^6/uL Hgb (12.0-16.0) g/dL Hct (36-46) % MCV (80-100) fL MCH (26-34) PG MCHC (30-36) % RDW (11.6-14.8) % Plt Count (150-400) X10^3/uL Neut % (Auto) (50-75) % Lymph % (Auto) (25-40) % [place] % (Auto) (3-14) % Eos % (Auto) (2-4) % Baso % (Auto) (0-2) % Neut # (Auto) (5517-9709) /uL Lymph # (Auto) (1651-8033) /uL [place] # (Auto) (0-900) /uL Eos # (Auto) (0-450) /uL Baso # (Auto) (0-100) /uL Sodium (137-145) mmol/L Potassium (3.4-5.1) mmol/L Chloride (98-107) mmol/L Carbon Dioxide (22-32) mmol/L BUN (7-17) mg/dL Creatinine (0.52-1.04) mg/dL Estimated GFR (>60) mL/min BUN/Creatinine Ratio (6-22) Glucose (80-110) mg/dL Calcium (8.4-10.2) mg/dL Total Bilirubin (0.2-1.3) mg/dL AST (14-36) IU/L ALT (<35) IU/L Alkaline Phosphatase (38-126) U/L Total Protein (6.3-8.2) g/dL Albumin (3.5-5.0) g/dL Globulin (1.7-4.1) g/dL Albumin/Globulin Ratio (1.0-2.8) Lipase (23-300) U/L Urine RBC None seen (0-5/HPF) Urine WBC 1-5/hpf (0-5/HPF) Ur Squamous Epith Cells 1-5 /hpf (0-5/HPF) Urine Bacteria Many (>30) H (None) Granular Casts 0-1/lpf (None) Urine Mucus 1+ H (Negative) Urine Yeast 0-1/hpf (None) Ur Culture Indicated? Specimen cultured SARS-CoV-2 (PCR) (Negative) Point of care testing: Urine Dip Bedside Urine Glucose Negative Bedside Urine Bilirubin - Negative Bedside Urine Ketone - Negative Urine Specific Alsen 1.020 Bedside Urine Occult Blood - Negative Bedside Urine pH 5.5 Bedside Urine Protein + 30 Bedside Urine Urobilinogen - Negative Bedside Urine Nitrite - Negative Imaging Data CT scan - abdomen/pelvis: Radiologist's Impression: [address] [address] [address] Scan Report Signed Patient: Batsheva Tidwell MR#: [id number] : 1935 Acct:[id number] Age/Sex: 86 / F Date of Service: 04/01/22 Loc: ED Accession Number: [id number] ?? Procedure: CT abdomen pelvis w con Ordering Provider: Radha Moore D.O. PROCEDURE:? CT ABDOMEN PELVIS W CON ? INDICATIONS:? abd pain, lower abd ? TECHNIQUE:? After the administration of IV contrast, axial sections were acquired from the lung bases to the pubic symphysis.? Coronal and sagittal reformats were performed.? For radiation dose reduction, the following was used:? automated exposure control, adjustment of mA and/or kV according to patient size. ? COMPARISON:? [facility], CT, CHEST/ABDOMEN WITH AND WITHOUT CONTRAST, 03/01/2012, 22:23. ? FINDINGS:? Image quality:? Excellent.? ? Lung bases:? There is right posterior pleural thickening with associated plaque- like pleural calcification redemonstrated.? Findings likely represent sequelae of prior trauma or infection.? In the right lower lobe, there is a 0.7 cm pulmonary nodule on series 5, image 12 which appears unchanged compared to the prior study given differences in technique.? ? Heart:? Heart size is mildly enlarged. ? ? ABDOMEN: Liver:? Multiple small hypodense foci are demonstrated throughout the liver.? The findings are too small to characterize but likely represent small cysts or biliary hamartomas. Gallbladder:? Within normal limits without calcified gallstones.? ? Biliary ducts:? No biliary ductal dilatation.? ? Pancreas:? There is a small oval cystic lesion within the pancreatic head measuring approximately 0.6 cm on series 2, image 33. This appears minimally increased in size from 0.5 cm previously. Spleen:? Normal in size.? ? Adrenal Glands:? No adrenal nodules.? ? Kidneys and Ureters:? No hydronephrosis.? There are heterogeneous areas of enhancement in the left kidney inferiorly with peripheral regions of non enhancement.? The findings are suggestive of renal infarcts.? No associated perinephric stranding.? The right kidney demonstrates no hydronephrosis.? There are few small right renal cysts. ? Stomach and Bowel:? Stomach, small bowel loops, and colon are normal in caliber and wall thickness.? No pericecal inflammatory changes to suggest appendicitis.? Peritoneum:? No abnormal intraperitoneal fluid.? No free air.? ? Ventral Wall: ? No hernia.? Abdominal Nodes:? No retroperitoneal or mesenteric adenopathy by size criteria.? Vessels:? Aorta and inferior vena cava are normal in size.? ? PELVIS: Pelvic Organs:? The uterus is surgically absent.? ? Bladder:? Unremarkable.? ? Pelvic Nodes: No enlarged lymph nodes.? Miscellaneous: No inguinal hernias are seen. ? ? ? Bones:? Visualized osseous structures demonstrate no suspicious focal lesions.? ? IMPRESSION:? ? 1.? Heterogeneous enhancement of the left kidney with peripheral areas of non enhancement.? 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 The differential includes pyelonephritis although this is considered less likely in the absence of associated perinephric stranding.? Recommend correlation clinically. ? 2. 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 A follow-up CT may be performed in 2 years to demonstrate stability if clinically indicated.? ? ? Dictated by: Paulie Cline M.D. on 04/01/2022 at 23:56 ? ? Approved by: Paulie Cline M.D. on 04/02/2022 at 0:05?? MDM Narrative Medical decision making narrative: This is a 86-year-old female with recent intraparenchymal hemorrhage secondary to amyloid disease. Patient presents today with complaint of abdominal pain she also notes her left eye is irritated. She is found to have a Chalazion on exam and discussed treatment and need for follow-up this. CT shows possible cystic lesion in the pancreas, patient needs long-term follow-up. She has mild discomfort on exam. CT also shows some enhancement of the left these are nonspecific could be renal infarcts versus pyelonephritis urine only shows protein. Patient's labs do not show major changes to CBC, CMP or abdominal labs. Patient is still positive for COVID she tested positive on 03/06/2022 when transferred for her intraparenchymal hemorrhage. She is no longer anticoagulated. Today her blood pressure is very appropriate. There is no clear signs of infection. Plan for patient to follow-up with primary care. Discharge Plan Departure Patient Disposition: Home Clinical Impression: Chalazion left upper eyelid, Pancreas cyst, Bacteriuria Activity Restrictions/Additional Instructions: You appear to have a chalazion of your upper eyelid, these are usually treated with warm compresses, occasionally topical antibiotics and follow-up with ophthalmology if it is persisting beyond a week or increasing in size or becoming more painful. On your imaging today there are changes consistent with a possible cyst on your pancreas. It is recommended you have repeat CT imaging in the next 1 year. There is also possible changes to your left kidney and should be followed with your primary care physician. You may take Tylenol up to a 1000 mg every 6 hours as needed for pain. You can use antibiotic to the affected eye twice daily if persisting. Prescription printed Please return for fevers, new or worsening abdominal, back or flank pain, persistent vomiting, black or bloody stools or other new or concerning symptoms. Prescriptions: New erythromycin 5 mg/gram (0.5 %) ointment 0.5 inch EYE-LEFT BID 5 Days Qty: 3.5 0RF cephalexin 500 mg capsule 500 mg PO BID Qty: 10 0RF Referrals: Hima Doll MD [Physician] - Miguel Sprague MD [Primary Care Provider] - Visit Report Forms: Patient Portal/API
[2022-04-01] MEDS: ERYTHROMYCIN OPHTH 1 GM OINT 1 APPLIC EYE-LEFT (22:36)
[2022-04-01] MEDS: SODIUM CHLORIDE 0.9% 1,000 ML 1000 ML IV (22:36)
[2022-04-01] MEDS: KETOROLAC 30 MG/ML VIAL 15 MG IV (22:36)
[2022-04-01 22:50] LABS: Add Manual Diff / Slide Review NO; Basophils Absolute Auto 0 /uL (0-100); Basophils Percent Auto 0.2 % (0-2); Eosinophils Absolute Auto 100 /uL (0-450); Eosinophils Percent Auto 0.6 % (2-4); Hemoglobin 12.4 g/dL (12.0-16.0); Lymphocytes Absolute Auto 2000 /uL (1100-4500); Lymphocytes Percent Auto 23.4 % (25-40); Mean Corpuscular HGB Conc 33.4 % (30-36); Mean Corpuscular Hemoglobin 33.4 PG (26-34); Mean Corpuscular Volume 99.9 fL (80-100); Monocytes Absolute Auto 800 /uL (0-900); Neutrophils Absolute Auto 5600 /uL (1500-7000); Neutrophils Percent Auto 66.8 % (50-75); Platelet Count 296 X10^3/uL (150-400); Red Blood Cell Count 3.71 X10^6/uL (4.0-5.2); Red Cell Distribution Width 14.4 % (11.6-14.8); White Blood Cell Count 8.4 X10^3/uL (4.5-11.0)
[2022-04-01 22:57] LABS: COVID19 -Nasal RAPID POSITIVE (Negative)
--- NOTE | 2022-04-01 22:58 | PC.NURSE ---
This RN called pt [id number], Maegan, for more information. Per Maegan, pt had a brain bleed and was discharged from [facility] to a [facility] 2-3wks ago and was COVID + upon transferring there. Pt was taken off of Eliquis, which she was taking for afib. Pt is only able to stand and pivot now at baseline since her stroke. Pt supposedly fell yesterday at home, but did not strike her head and appeared to be at her baseline cognition, which is impaired with severe memory issues.
[2022-04-01 23:00] VITALS: PULSE 81; O2SAT 94
[2022-04-01 23:03] LABS: Alanine Aminotransferase 24 IU/L (<35); Albumin 3.9 g/dL (3.5-5.0); Albumin Globulin Ratio 1.1 (1.0-2.8); Alkaline Phosphatase 90 U/L (38-126); Aspartate Aminotransferase 37 IU/L (14-36); BUN Creatinine Ratio 30.8 (6-22); Bilirubin Total 0.3 mg/dL (0.2-1.3); Blood Urea Nitrogen 20 mg/dL (7-17); Calcium 9.5 mg/dL (8.4-10.2); Carbon Dioxide 26 mmol/L (22-32); Chloride 104 mmol/L (98-107); Estimated Glomerular Filt Rate > 60 mL/min (>60); Globulin 3.7 g/dL (1.7-4.1); Glucose 130 mg/dL (80-110); HEMOLYSIS < 15 (0-50); Lipase 152 U/L (23-300); Potassium 3.8 mmol/L (3.4-5.1); Sodium 139 mmol/L (137-145); Total Protein 7.6 g/dL (6.3-8.2)
[2022-04-01 23:30] VITALS: O2SAT 92
[2022-04-01 23:41] VITALS: BP 132/63; PULSE 81; PULSE 84; RESP 17; O2SAT 95; O2SAT 97
[2022-04-02] VITALS (17 sets, daily range): BP systolic 120–158; BP diastolic 58–90; PULSE 70–94; RESP 16–18; O2SAT 95–96
--- NOTE | 2022-04-02 00:20 | PC.NURSE ---
Pt has been sleeping for last hour. Pt does wake up to verbal stimulation and appears consistent with mentation described by daughter in law and how she present when she first arrived to ER.
[2022-04-02 00:49] LABS: Bacteria Urine Many (>30); RBC Urine None Seen (0-5/HPF); Squamous Epithelial Cell Urine 1-5 /HPF (0-5/HPF); WBC Urine 1-5/HPF (0-5/HPF)
[2022-04-02 00:51] LABS: Mucus Urine 1+ (Negative)
[2022-04-02 00:52] LABS: Culture Indicated Urine Specimen Cultured; Granular Casts Urine 0-1/LPF
[2022-04-02] MEDS: cephALEXin 250 MG CAPSULE 500 MG PO (01:27)
--- NOTE | 2022-04-02 01:30 | PC.NURSE ---
Family unable to come and transport pt back home. Family concerned that pt cannot walk the distance from the parking ramp to the apartment door. S transport arranged for pt, but family notified this will not be until late morning. Family understands this.
--- NOTE | 2022-04-02 06:54 | PC.NURSE ---
Pt daughter, Alexa, called this RN to get update on pt. She states she is pt's POA and decision maker. She will be coming to the hospital in the next hour to bring pt to Maegan's apartment and help her with ambulating/transferring into the apartment.
[2022-04-02] MEDS: KETOROLAC 30 MG/ML VIAL 15 MG IV (07:35)
[2022-04-02] MEDS: ONDANSETRON 4 MG ODT SL (07:46)
== END 2022-04-02 07:50 | disposition home or self-care (01) ==
PROVIDERS: Emergency Provider Emergency Medicine; Family Provider Family Medicine; PCP Family Medicine
DX: H00.14 Chalazion left upper eyelid (principal); K86.2 Cyst of pancreas; R82.71 Bacteriuria; U07.1 COVID-19; R11.2 Nausea with vomiting, unspecified
CPT/HCPCS: 36415; 74177; 80053; 81003; 81015; 83690; 85025; 87077; 87086; 87186; 87635; 96361; 96374; 96375; 99284; C9803; J1885; Q9967

== ENCOUNTER 2023-03-02 10:57 | Observation (INO) | payer MEDICARE, OTHER, SELFPAY ==
[2023-03-02] VITALS (39 sets, daily range): BP systolic 92–166; BP diastolic 51–127; PULSE 77–148; RESP 18–39; TEMP 36.2–36.3; O2SAT 91–98; BMI 20.2
--- NOTE | 2023-03-02 10:55 | DI.CT.S_ITS ---
PROCEDURE: CT STROKE INDICATIONS: altered, history of stroke TECHNIQUE: Noncontrast 4.5 mm thick angled axial sections acquired from the foramen magnum to the vertex, with coronal reformats. For radiation dose reduction, the following was used: automated exposure control, adjustment of mA and/or kV according to patient size. COMPARISON: None. FINDINGS: Image quality: Motion is present CSF spaces: Basal cisterns are patent. No extra-axial fluid collections. The ventricles are symmetric in size and shape. Brain: No intracranial bleeds or masses. There is cerebral volume loss for age, with resultant ventricular and sulcal prominence. There are periventricular and deep white matter chronic small vessel ischemic changes. There is intracranial internal carotid artery atherosclerosis. Skull and face: Calvarium and visualized facial bones appear intact, without suspicious lesions. Sinuses: Visualized sinuses and mastoids are clear. IMPRESSION: 1. No gross acute intracranial process. Prominent motion is present limiting areas of fine detail evaluation. 2. Moderate to severe atrophy and chronic microvascular ischemic changes. The above findings were discussed with Dr. Armond Dong on 03/02/2023 at 11:15 a.m. This study fulfills neurological imaging criteria for inclusion or exclusion of acute stroke therapies based on available published neurological guidelines. Dictated by: Fang Donnelly M.D. on 03/02/2023 at 11:52 Approved by: Fang Donnelly M.D. on 03/02/2023 at 11:53
--- NOTE | 2023-03-02 10:58 | ED_ITS ---
HPI - Altered Mental Status General Chief Complaint: Neuro Symptoms/Deficit Stated Complaint: CVA - Bleed Time Seen by Provider: 03/02/23 10:58 History of Present Illness HPI narrative: 87-year-old female nonsmoker with history of atrial fibrillation, formally on anticoagulation (reportedly no longer on Coumadin) with prior stroke and hemorrhagic conversion presents by EMS for evaluation of altered mental status. Last normal was at 0930. Normally high functioning, lives at home alone. No obvious trauma. Patient was initially unresponsive with poor respiratory effort and they were preparing to possibly intubate but she has been improving over the course of EMS evaluation and transfer. There is no report of medication or dietary change. Patient is unable to contribute anything to the story. She is activated as a code stroke and taken directly to CT Related Data Previous Rx's Medication Instructions Recorded cephalexin 500 mg capsule 500 mg PO BID #10 caps 04/02/22 Allergies Allergy/AdvReac Type Severity Reaction Status Date / Time No Known Drug Allergies Allergy Verified 09/29/18 12:37 Review of Systems Review of Systems ROS Unobtainable: Unobtainable due to mental status/LOC Patient History Medical History Atrial fibrillation Surgical History No pertinent past surgical history Social History caregiver/support person: Yes Smoking Status: Never smoker Smoking Status: Never smoker alcohol intake frequency: 0-2 drinks per day Substance Use Type: does not use Exam Narrative Exam Narrative: GENERAL: [87] year old patient appears stated age. Well-developed patient, in obvious distress, altered mental status, confused, guarding her airway in controlling secretions. HEAD: Atraumatic. Normocephalic. EYES: Pupils equal round and reactive. Extraocular motions intact. No scleral icterus. No injection or drainage. ENT: Nose without bleeding, purulent drainage. Throat without erythema, tonsillar hypertrophy or exudate. Airway patent. NECK: Trachea midline. Non tender CARDIOVASCULAR: Regular rate and rhythm without murmurs, gallops, or rubs. RESPIRATORY: Clear to auscultation. Breath sounds equal bilaterally. No wheezes, rales, or rhonchi. GASTROINTESTINAL: Abdomen soft, non-tender, nondistended. EXTREMITIES: No edema or joint tenderness. BACK: Nontender without deformity or crepitance. No flank tenderness. NEURO: AOx3. SKIN: No rash or erythema of visible areas Initial Vital Signs Initial Vital Signs: Vital Signs Temperature 97.3 F L 03/02/23 11:06 Pulse Rate 113 H 03/02/23 11:06 Respiratory Rate 03/02/23 11:06 Blood Pressure 139/92 H 03/02/23 11:06 Oxygen Delivery Method Room Air 03/02/23 11:06 Procedures Lumbar Puncture Time Out Performed: Yes Patient Position: left lateral decubitus Skin Prep: Povidone-Iodine 1% Local Anesthetic: lidocaine 1% Amount of anesthesia used (mL): 3 Spinal Needle Gauge: 22G Interspace Used: L4-L5 Fluid Initially Obtained: clear Complications: none Course Orders Ordered: ED Orders 03/02/23 10:55 CT Stroke Stat 03/02/23 10:56 CT angio head and neck Stat 03/02/23 11:10 Acetaminophen Stat Complete Blood Count AUTO DIFF Stat Comprehensive Metabolic Panel Stat Ethanol (ETOH) Stat Lactate (Lactic Acid) Stat PTT Partial Thromboplastin Paco Stat Prolactin Stat Prothrombin Time INR Stat Salicylate Stat Troponin & CK Cardiac Panel Stat 03/02/23 11:35 Urinalysis and Microscopic Stat Urine Drug Screen, Rapid Stat 03/02/23 12:02 EKG-12 Lead Stat 03/02/23 15:27 CSF culture Stat 03/02/23 15:30 Cell Count w Diff CSF Stat Glucose CSF Stat Meningitis Panel (Film Array) Stat Total Protein CSF Stat Discontinued Medications Haloperidol (Haloperidol 5 Mg/Ml Vial) 2 mg IV NOW ONE Stop: 03/02/23 11:38 Last Admin: 03/02/23 11:43 Dose: 2 mg Documented By: ST Haloperidol (Haloperidol 5 Mg/Ml Vial) 1 mg IV NOW ONE Stop: 03/02/23 15:58 Metoprolol Tartrate (Metoprolol Tartrate 5 Mg/5 Ml Inj) 5 mg IV NOW ONE Stop: 03/02/23 16:02 Reevaluation(s) Reevaluation #1: patient continuing to wake up, no obvious focal findings. Moving all extre mities. Said her name. Not candidate for TPA Time: 11:40 Vital Signs Vital signs: Vital Signs - 8 hr 03/02/23 11:06 03/02/23 11:09 03/02/23 11:12 Temperature 97.3 F L Pulse Rate 113 H 100 H 108 H Respiratory Rate 22 37 H 31 H Blood Pressure 139/92 H Pulse Oximetry 91 Oxygen Delivery Method Room Air 03/02/23 11:12 03/02/23 11:14 03/02/23 11:14 Temperature Pulse Rate 109 H Respiratory Rate 24 Blood Pressure 139/92 H 146/127 H Pulse Oximetry Oxygen Delivery Method 03/02/23 11:30 03/02/23 11:31 03/02/23 11:31 Temperature Pulse Rate 105 H 135 H Respiratory Rate 29 H 34 H Blood Pressure 153/76 H Pulse Oximetry 91 94 Oxygen Delivery Method 03/02/23 12:00 03/02/23 12:01 03/02/23 12:01 Temperature Pulse Rate 118 H 123 H Respiratory Rate 30 H 30 H Blood Pressure 132/60 Pulse Oximetry 92 94 Oxygen Delivery Method 03/02/23 12:30 03/02/23 12:30 03/02/23 13:00 Temperature Pulse Rate 93 H 96 H Respiratory Rate 20 23 Blood Pressure 107/53 L Pulse Oximetry 97 96 Oxygen Delivery Method 03/02/23 13:30 03/02/23 13:30 03/02/23 14:00 Temperature Pulse Rate 135 H Respiratory Rate 39 H Blood Pressure 136/85 152/96 H Pulse Oximetry 92 Oxygen Delivery Method 03/02/23 14:00 03/02/23 14:05 Temperature Pulse Rate 131 H 104 H Respiratory Rate 26 H Blood Pressure Pulse Oximetry 94 Oxygen Delivery Method MDM - Altered Mental Status Lab Data 03/02/23 11:10 03/02/23 11:10 Labs: Lab Results 03/02/23 03/02/23 03/02/23 Range/Units 11:10 11:10 11:10 WBC 16.8 H (4.5-11.0) X10^3/uL RBC 4.15 (4.0-5.2) X10^6/uL Hgb 13.8 (12.0-16.0) g/dL Hct 42.2 (36-46) % MCV 101.9 H (80-100) fL MCH 33.4 (26-34) PG MCHC 32.7 (30-36) % RDW 14.1 (11.6-14.8) % Plt Count 342 (150-400) X10^3/uL Neut % (Auto) 63.5 (50-75) % Lymph % (Auto) 27.3 (25-40) % [place] % (Auto) 8.0 (3-14) % Eos % (Auto) 0.3 L (2-4) % Baso % (Auto) 0.9 (0-2) % Neut # (Auto) 64274 H (0478-1070) /uL Lymph # (Auto) 4600 H (2136-4281) /uL [place] # (Auto) 1300 H (0-900) /uL Eos # (Auto) 100 (0-450) /uL Baso # (Auto) 200 H (0-100) /uL PT 12.4 (10.1-12.7) SECONDS INR 1.1 (0.9-1.3) APTT 27 (26-36) SECONDS Sodium 142 (137-145) mmol/L Potassium 4.4 (3.4-5.1) mmol/L Chloride 103 (98-107) mmol/L Carbon Dioxide 30 (22-32) mmol/L BUN 28 H (7-17) mg/dL Creatinine 1.09 H (0.52-1.04) mg/dL Estimated GFR 49 L (>60) mL/min BUN/Creatinine Ratio 25.7 H (6-22) Glucose 155 H (80-110) mg/dL Lactate (0.7-2.1) mmol/L Calcium 9.7 (8.4-10.2) mg/dL Total Bilirubin 0.5 (0.2-1.3) mg/dL AST 49 H (14-36) IU/L ALT 43 H (<35) IU/L Alkaline Phosphatase 118 (38-126) U/L Total Creatine Kinase 59 (30-135) U/L CK-MB (CK-2) TNP CK-MB (CK-2) Rel Index TNP Troponin I < 0.012 (0.01-0.034) ng/mL Total Protein 8.5 H (6.3-8.2) g/dL Albumin 4.5 (3.5-5.0) g/dL Globulin 4.0 (1.7-4.1) g/dL Albumin/Globulin Ratio 1.1 (1.0-2.8) Prolactin (3.0-18.6) ng/mL Urine Color Urine Appearance Urine pH (4.5-8.0) Ur Specific [place] (1.000-1.035) Urine Protein (Negative) Urine Glucose (UA) (Negative) g/dL Urine Ketones (NEGATIVE) Urine Occult Blood (Negative) Urine Nitrate (Negative) Urine Bilirubin (NEGATIVE) Urine Urobilinogen (0.2) E.U./dL Ur Leukocyte Esterase (NEGATIVE) Urine RBC (0-5/HPF) Urine WBC (0-5/HPF) Ur Squamous Epith Cells (0-5/HPF) Urine Bacteria (None) Ur Culture Indicated? CSF Tube Number CSF Volume CSF Appearance (Clear) CSF Color (Colorless) CSF WBC (0-5) MONO/uL CSF RBC RBC /uL CSF Mononuclear WBCs CSF Polynuclear WBCs CSF Glucose (40-70) mg/dL CSF Total Protein (12-60) mg/dL Salicylates (<20) mg/dL U Opiates 300ng/mL cut (Negative) Ur Oxycodone Screen (Negative) Urine Methadone Screen (Negative) Acetaminophen (10-30) ug/mL Ur Barbiturates Screen (Negative) U Tricyclic Antidepress (Negative) Ur Phencyclidine Scrn (Negative) Ur Amphetamines Screen (Negative) U Methamphetamines Scrn (Negative) Ur MDMA Scrn (Ecstasy) (Negative) U Benzodiazepines Scrn (Negative) Urine Cocaine Screen (Negative) U Marijuana (THC) Screen (Negative) Ethyl Alcohol < 10 ( - 10) mg/dL 03/02/23 03/02/23 03/02/23 Range/Units 11:10 11:10 11:35 WBC (4.5-11.0) X10^3/uL RBC (4.0-5.2) X10^6/uL Hgb (12.0-16.0) g/dL Hct (36-46) % MCV (80-100) fL MCH (26-34) PG MCHC (30-36) % RDW (11.6-14.8) % Plt Count (150-400) X10^3/uL Neut % (Auto) (50-75) % Lymph % (Auto) (25-40) % [place] % (Auto) (3-14) % Eos % (Auto) (2-4) % Baso % (Auto) (0-2) % Neut # (Auto) (1248-5073) /uL Lymph # (Auto) (0710-4628) /uL [place] # (Auto) (0-900) /uL Eos # (Auto) (0-450) /uL Baso # (Auto) (0-100) /uL PT (10.1-12.7) SECONDS INR (0.9-1.3) APTT (26-36) SECONDS Sodium (137-145) mmol/L Potassium (3.4-5.1) mmol/L Chloride (98-107) mmol/L Carbon Dioxide (22-32) mmol/L BUN (7-17) mg/dL Creatinine (0.52-1.04) mg/dL Estimated GFR (>60) mL/min BUN/Creatinine Ratio (6-22) Glucose (80-110) mg/dL Lactate 4.4 H* (0.7-2.1) mmol/L Calcium (8.4-10.2) mg/dL Total Bilirubin (0.2-1.3) mg/dL AST (14-36) IU/L ALT (<35) IU/L Alkaline Phosphatase (38-126) U/L Total Creatine Kinase (30-135) U/L CK-MB (CK-2) CK-MB (CK-2) Rel Index Troponin I (0.01-0.034) ng/mL Total Protein (6.3-8.2) g/dL Albumin (3.5-5.0) g/dL Globulin (1.7-4.1) g/dL Albumin/Globulin Ratio (1.0-2.8) Prolactin 43.2 H (3.0-18.6) ng/mL Urine Color Urine Appearance Urine pH (4.5-8.0) Ur Specific [place] (1.000-1.035) Urine Protein (Negative) Urine Glucose (UA) (Negative) g/dL Urine Ketones (NEGATIVE) Urine Occult Blood (Negative) Urine Nitrate (Negative) Urine Bilirubin (NEGATIVE) Urine Urobilinogen (0.2) E.U./dL Ur Leukocyte Esterase (NEGATIVE) Urine RBC (0-5/HPF) Urine WBC (0-5/HPF) Ur Squamous Epith Cells (0-5/HPF) Urine Bacteria (None) Ur Culture Indicated? CSF Tube Number CSF Volume CSF Appearance (Clear) CSF Color (Colorless) CSF WBC (0-5) MONO/uL CSF RBC RBC /uL CSF Mononuclear WBCs CSF Polynuclear WBCs CSF Glucose (40-70) mg/dL CSF Total Protein (12-60) mg/dL Salicylates < 1.0 (<20) mg/dL U Opiates 300ng/mL cut Negative (Negative) Ur Oxycodone Screen Negative (Negative) Urine Methadone Screen Negative (Negative) Acetaminophen < 10 (10-30) ug/mL Ur Barbiturates Screen Negative (Negative) U Tricyclic Antidepress Negative (Negative) Ur Phencyclidine Scrn Negative (Negative) Ur Amphetamines Screen Negative (Negative) U Methamphetamines Scrn Negative (Negative) Ur MDMA Scrn (Ecstasy) Negative (Negative) U Benzodiazepines Scrn Negative (Negative) Urine Cocaine Screen Negative (Negative) U Marijuana (THC) Screen Negative (Negative) Ethyl Alcohol ( - 10) mg/dL 03/02/23 03/02/23 03/02/23 Range/Units 11:35 13:30 15:30 WBC (4.5-11.0) X10^3/uL RBC (4.0-5.2) X10^6/uL Hgb (12.0-16.0) g/dL Hct (36-46) % MCV (80-100) fL MCH (26-34) PG MCHC (30-36) % RDW (11.6-14.8) % Plt Count (150-400) X10^3/uL Neut % (Auto) (50-75) % Lymph % (Auto) (25-40) % [place] % (Auto) (3-14) % Eos % (Auto) (2-4) % Baso % (Auto) (0-2) % Neut # (Auto) (6769-1981) /uL Lymph # (Auto) (4594-9022) /uL [place] # (Auto) (0-900) /uL Eos # (Auto) (0-450) /uL Baso # (Auto) (0-100) /uL PT (10.1-12.7) SECONDS INR (0.9-1.3) APTT (26-36) SECONDS Sodium (137-145) mmol/L Potassium (3.4-5.1) mmol/L Chloride (98-107) mmol/L Carbon Dioxide (22-32) mmol/L BUN (7-17) mg/dL Creatinine (0.52-1.04) mg/dL Estimated GFR (>60) mL/min BUN/Creatinine Ratio (6-22) Glucose (80-110) mg/dL Lactate 3.2 H (0.7-2.1) mmol/L Calcium (8.4-10.2) mg/dL Total Bilirubin (0.2-1.3) mg/dL AST (14-36) IU/L ALT (<35) IU/L Alkaline Phosphatase (38-126) U/L Total Creatine Kinase (30-135) U/L CK-MB (CK-2) CK-MB (CK-2) Rel Index Troponin I (0.01-0.034) ng/mL Total Protein (6.3-8.2) g/dL Albumin (3.5-5.0) g/dL Globulin (1.7-4.1) g/dL Albumin/Globulin Ratio (1.0-2.8) Prolactin (3.0-18.6) ng/mL Urine Color Yellow Urine Appearance Sl cloudy Urine pH 6.0 (4.5-8.0) Ur Specific [place] 1.020 (1.000-1.035) Urine Protein 1+ H (Negative) Urine Glucose (UA) Negative (Negative) g/dL Urine Ketones Negative (NEGATIVE) Urine Occult Blood Negative (Negative) Urine Nitrate Negative (Negative) Urine Bilirubin Negative (NEGATIVE) Urine Urobilinogen 1.0 (0.2) E.U./dL Ur Leukocyte Esterase Negative (NEGATIVE) Urine RBC None seen (0-5/HPF) Urine WBC 0-1/hpf (0-5/HPF) Ur Squamous Epith Cells 0-1 /hpf (0-5/HPF) Urine Bacteria None seen (None) Ur Culture Indicated? Cult not indicated CSF Tube Number 3 CSF Volume 2.0 ml CSF Appearance Clear (Clear) CSF Color Colorless (Colorless) CSF WBC 0 (0-5) MONO/uL CSF RBC 222 RBC /uL CSF Mononuclear WBCs TNP CSF Polynuclear WBCs TNP CSF Glucose 78 H (40-70) mg/dL CSF Total Protein 75 H (12-60) mg/dL Salicylates (<20) mg/dL U Opiates 300ng/mL cut (Negative) Ur Oxycodone Screen (Negative) Urine Methadone Screen (Negative) Acetaminophen (10-30) ug/mL Ur Barbiturates Screen (Negative) U Tricyclic Antidepress (Negative) Ur Phencyclidine Scrn (Negative) Ur Amphetamines Screen (Negative) U Methamphetamines Scrn (Negative) Ur MDMA Scrn (Ecstasy) (Negative) U Benzodiazepines Scrn (Negative) Urine Cocaine Screen (Negative) U Marijuana (THC) Screen (Negative) Ethyl Alcohol ( - 10) mg/dL Point of Care Testing Glucose POC 141 MDM Narrative Medical decision making narrative: 87-year-old female with history of prior stroke presents with altered mental status, she was initially activated as a code stroke but even by her arrival she was found to be moving all extremities and answering questions but clearly confused and encephalopathic. This improved some over the course of the visit but never completely cleared. Her story is certainly concerning for the potential an unwitnessed seizure and though she has no history she is at risk given her prior stroke, apparent postictal phase, elevated WBCs, lactate, prolactin. LP was performed to rule out other secondary causes and thankfully was unremarkable. Patient admitted to Dr. Rivera (hospitalist). Patient and family understand and agree with the diagnosis and plan Discharge Plan Departure Patient Disposition: Admitted as Observation Clinical Impression: Acute encephalopathy, Post-ictal confusion Admit Date/Time: 03/02/23 16:17 Admit Provider: Casey Rivera
--- NOTE | 2023-03-02 11:20 | PC.NURSE ---
1120: No focal deficit noted. Pt's speech is clear but nonsensical, with repeated words and phrases and inappropriate answers to questions. Pt does answer what is your name? correctly. Pt is moving vigorously in bed with strength in all extremities Pt does not follow commands.
[2023-03-02 11:26] LABS: Add Manual Diff / Slide Review NO; Basophils Absolute Auto 200 /uL (0-100); Basophils Percent Auto 0.9 % (0-2); Eosinophils Absolute Auto 100 /uL (0-450); Eosinophils Percent Auto 0.3 % (2-4); Hematocrit 42.2 % (36-46); Hemoglobin 13.8 g/dL (12.0-16.0); Lymphocytes Absolute Auto 4600 /uL (1100-4500); Lymphocytes Percent Auto 27.3 % (25-40); Mean Corpuscular HGB Conc 32.7 % (30-36); Mean Corpuscular Hemoglobin 33.4 PG (26-34); Mean Corpuscular Volume 101.9 fL (80-100); Monocytes Absolute Auto 1300 /uL (0-900); Neutrophils Absolute Auto 10700 /uL (1500-7000); Neutrophils Percent Auto 63.5 % (50-75); Platelet Count 342 X10^3/uL (150-400); Red Blood Cell Count 4.15 X10^6/uL (4.0-5.2); Red Cell Distribution Width 14.1 % (11.6-14.8); White Blood Cell Count 16.8 X10^3/uL (4.5-11.0)
[2023-03-02 11:34] LABS: INR 1.1 (0.9-1.3); Prothrombin Time 12.4 SECONDS (10.1-12.7)
[2023-03-02 11:37] LABS: PTT Partial Thromboplastin Tim 27 SECONDS (26-36)
[2023-03-02 11:40] LABS: Acetaminophen < 10 ug/mL (10-30); Salicylate < 1.0 mg/dL (<20)
[2023-03-02 11:41] LABS: Alanine Aminotransferase 43 IU/L (<35); Albumin 4.5 g/dL (3.5-5.0); Albumin Globulin Ratio 1.1 (1.0-2.8); Alkaline Phosphatase 118 U/L (38-126); Aspartate Aminotransferase 49 IU/L (14-36); BUN Creatinine Ratio 25.7 (6-22); Bilirubin Total 0.5 mg/dL (0.2-1.3); Blood Urea Nitrogen 28 mg/dL (7-17); Calcium 9.7 mg/dL (8.4-10.2); Carbon Dioxide 30 mmol/L (22-32); Chloride 103 mmol/L (98-107); Creatine Kinase 59 U/L (30-135); Estimated Glomerular Filt Rate 49 mL/min (>60); Ethanol (ETOH) < 10 mg/dL; Glucose 155 mg/dL (80-110); HEMOLYSIS < 15 (0-50); Potassium 4.4 mmol/L (3.4-5.1); Sodium 142 mmol/L (137-145); Total Protein 8.5 g/dL (6.3-8.2)
[2023-03-02] MEDS: HALOPERIDOL 5 MG/ML VIAL 2 MG IV (11:43)
[2023-03-02 11:46] LABS: Lactate (Lactic Acid) 4.4 mmol/L (0.7-2.1)
[2023-03-02 11:53] LABS: Troponin I < 0.012 ng/mL (0.01-0.034)
--- NOTE | 2023-03-02 11:55 | PC.NURSE ---
1200: Daughter Jennifer at bedside. Confirms pt last known well at 0900. States that pt has vascular dementia that has been worsening, with many falls in the last month. Pt is oriented to self and place at baseline, with increasing confusion recently. Pt is hard of hearing. Super Ears placed on pt. Pt is now sleeping and rouses to gentle physical stimulus. Pt continues to repeat can I get up? but is able to state her name in response to questioning.
[2023-03-02 11:58] LABS: Prolactin 43.2 ng/mL (3.0-18.6)
--- NOTE | 2023-03-02 12:14 | PC.NURSE ---
1130: Pt vigorously attempting to get out of bed, moving down to end, putting legs over rails, strongly resisting lab draw and all care. Three staff needed to hold pt still for lab draw. Pt asks Can I get up? Can I go downstairs? continuously. Does not answer questions. 1:1 sitter has been requested. In the meantime, this RN remains in room for pt safety.
[2023-03-02 12:32] LABS: Appearance Urine UA SL CLOUDY; Bilirubin Urine UA NEGATIVE (NEGATIVE); Color Urine UA YELLOW; Glucose Urine UA NEGATIVE (Negative); Ketones Urine UA NEGATIVE (NEGATIVE); Leukocyte Esterase Urine UA NEGATIVE (NEGATIVE); Nitrite Urine UA NEGATIVE (Negative); Occult Blood Urine UA NEGATIVE (Negative); Protein Urine UA 1+ (Negative)
[2023-03-02 12:40] LABS: UR Morphine/Opiate cutoff 300 Negative (Negative); Ur Creatinine Normal (Normal); Ur Specific Gravity Normal (Normal); Urine Amphetamines Negative (Negative); Urine Barbiturates Negative (Negative); Urine Benzodiazepines Negative (Negative); Urine Cocaine Negative (Negative); Urine MDMA Negative (Negative); Urine Methadone Negative (Negative); Urine Methamphetamines Negative (Negative); Urine Oxycodone Negative (Negative); Urine Phencyclidine Negative (Negative); Urine Tetrahydrocannabinol Negative (Negative); Urine Tricyclic Antidepressant Negative (Negative); Urine pH Normal (Normal)
[2023-03-02 12:53] LABS: Bacteria Urine None Seen; Culture Indicated Urine Cult Not Indicated; RBC Urine None Seen (0-5/HPF); Squamous Epithelial Cell Urine 0-1 /HPF (0-5/HPF); WBC Urine 0-1/HPF (0-5/HPF)
[2023-03-02 13:18] LABS: Reflexed Lactate in 2 Hours Y
--- NOTE | 2023-03-02 13:42 | PC.NURSE ---
1320: Pt awake, stating I have to go to the bathroom! Pt incontinent of stool for second time since arrival. Physically resists care, grabbing RN hands, pushing away, trying to move out of bed. Pt cleaned and placed in new brief. Falls back asleep. Daughter remains at bedside.
[2023-03-02 14:13] LABS: Lactate 2HR (Lactic Acid Rflx) 3.2 mmol/L (0.7-2.1)
[2023-03-02] MEDS: HALOPERIDOL 5 MG/ML VIAL 1 MG IV (15:08)
--- NOTE | 2023-03-02 15:32 | PC.NURSE ---
Provider at bedside for lumbar puncture. Pt is alert, answering many questions approriately. Pt follws some commands but is unable to get into position or lie still for LP. Haldol ordered. Pt then tolerated procedure well. Pt placed into flat position following procedure. Pt asked to remain on back, but turns from side to side. Pt reminded to remain flat. Will monitor closely. CSF specimens walked to lab.
[2023-03-02 15:51] LABS: Glucose CSF 78 mg/dL (40-70); Total Protein CSF 75 mg/dL (12-60)
[2023-03-02 15:54] LABS: Appearance CSF Clear (Clear); CSF Tube Number 3; CSF Tube Volume 2.0 mL; Color CSF Colorless (Colorless); Red Blood Cell CSF 222 RBC /uL; White Blood Cell CSF 0 MONO/uL (0-5)
[2023-03-02] MEDS: METOPROLOL TARTRATE 5 MG/5 ML INJ IV (16:32)
--- NOTE | 2023-03-02 17:04 | PC.NURSE ---
Called report to LUIS Cardenas in ICU
[2023-03-02 17:31] LABS: Cryptococcus neoformans/gattii Not Detected (Not Detect); Enterovirus Not Detected (Not Detect); Escherichia coli K1 Not Detected (Not Detect); Haemophilus influenzae Not Detected (Not Detect); Herpes simplex virus 1 Not Detected (Not Detect); Herpes simplex virus 2 Not Detected (Not Detect); Human herpesvirus 6 Not Detected (Not Detect); Human parechovirus Not Detected (Not Detect); Listeria monocytogenes Not Detected (Not Detect); Neisseria meningitidis Not Detected (Not Detect); Streptococcus agalactiae Not Detected (Not Detect); Streptococcus pneumoniae Not Detected (Not Detect); Varicella Zoster Virus Not Detected (Not Detecte)
--- NOTE | 2023-03-02 17:55 | PC.NURSE ---
Patient's daughter answered admission questions to best of ability. Patient restless and uncooperative, pushing staff away, assessment completed as best as possible.
--- NOTE | 2023-03-02 18:13 | P.HP_ITS ---
History of Present Illness History of Present Illness Date Patient Seen: 03/02/23 Time Patient Seen: 16:15 Chief complaint: unresponsiveness Narrative: 87 yo female history of cerebral amyloid angiopathy, dementia, hypertension, dyslipidemia, GERD, chronic atrial fibrillation, stroke x 2, anticoagulation stopped due to numcerous cerebral bleeds on MRI presents by EMS for evaluation of altered mental status. Last normal was at 0930. Reportedly she was found slum ped over at home by [employer] junior sales representative. Grandson had earlier checked in on her an hour before. Patient lives alone but dtr, who is RN, or other family checks in on her multiple times a day. No known history of seizure. Pt unable to provide hx secondary to altered mentation. Pt reportedly falls frequently at home, refuses to use walker, and family notes poor memory recall. Family also note very poor oral intake. Dtr notes she has in the past been unresponsive at times which they've attributed to lack of food intake. In ED, afebrile, mildly tachycardic. head CT reportedly no acute findings. WBC 16.8 without left shift, Cr 1.09, gluc 155, lactate 3.2, prolactin 43. Urinalysis unremarkable. LP was done by ED physician - 0 WBC, gluc 78, prot 75 with nl CSF PCR panel. Noted in rapid afib further in ED stay. [facility] Medical History (Updated 03/02/23 @ 19:27 by Casey Rivera MD) Atrial fibrillation Dementia History of cerebral hemorrhage History of CVA with residual deficit Surgical History No pertinent past surgical history Social History household members: family caregiver/support person: Yes Smoking Status: Never smoker Meds Home Medications and Allergies Home Medications Medication Instructions Recorded Confirmed Type gabapentin 100 mg capsule 100 mg TID PRN Pain (Scale Score 03/02/23 03/02/23 History 1-3) lisinopril 5 mg tablet 5 mg PO DAILY 03/02/23 03/02/23 History metoprolol succinate 100 mg 100 mg PO DAILY 03/02/23 03/02/23 History tablet,extended release 24 hr omeprazole 20 mg capsule,delayed 20 mg PO DAILY 03/02/23 03/02/23 History release Allergies Allergy/AdvReac Type Severity Reaction Status Date / Time No Known Drug Allergies Allergy Verified 09/29/18 12:37 Exam Vital Signs (past 8 hours): - 03/02/23 11:06 03/02/23 11:09 03/02/23 11:12 Temperature 97.3 F L Pulse Rate 113 H 100 H 108 H Respiratory Rate 22 37 H 31 H Blood Pressure 139/92 H Pulse Oximetry 91 Oxygen Delivery Method Room Air 03/02/23 11:12 03/02/23 11:14 03/02/23 11:14 Temperature Pulse Rate 109 H Respiratory Rate 24 Blood Pressure 139/92 H 146/127 H Pulse Oximetry Oxygen Delivery Method 03/02/23 11:30 03/02/23 11:31 03/02/23 11:31 Temperature Pulse Rate 105 H 135 H Respiratory Rate 29 H 34 H Blood Pressure 153/76 H Pulse Oximetry 91 94 Oxygen Delivery Method 03/02/23 12:00 03/02/23 12:01 03/02/23 12:01 Temperature Pulse Rate 118 H 123 H Respiratory Rate 30 H 30 H Blood Pressure 132/60 Pulse Oximetry 92 94 Oxygen Delivery Method 03/02/23 12:30 03/02/23 12:30 03/02/23 13:00 Temperature Pulse Rate 93 H 96 H Respiratory Rate 20 23 Blood Pressure 107/53 L Pulse Oximetry 97 96 Oxygen Delivery Method 03/02/23 13:30 03/02/23 13:30 03/02/23 14:00 Temperature Pulse Rate 135 H Respiratory Rate 39 H Blood Pressure 136/85 152/96 H Pulse Oximetry 92 Oxygen Delivery Method 03/02/23 14:00 03/02/23 14:05 03/02/23 14:30 Temperature Pulse Rate 131 H 104 H Respiratory Rate 26 H Blood Pressure 131/63 Pulse Oximetry 94 Oxygen Delivery Method 03/02/23 14:30 03/02/23 15:00 03/02/23 15:00 Temperature Pulse Rate 113 H 113 H Respiratory Rate 28 H 25 H Blood Pressure 135/91 H Pulse Oximetry 94 94 Oxygen Delivery Method 03/02/23 15:30 03/02/23 15:30 03/02/23 16:00 Temperature Pulse Rate 148 H 138 H Respiratory Rate 32 H 28 H Blood Pressure 134/92 H Pulse Oximetry 92 93 Oxygen Delivery Method 03/02/23 16:30 03/02/23 16:40 06/22/23 17:00 Temperature Pulse Rate 141 H 140 H Respiratory Rate 36 H Blood Pressure 117/67 Pulse Oximetry 93 92 Oxygen Delivery Method 03/02/23 17:00 03/02/23 16:33 Temperature Pulse Rate 141 H Respiratory Rate 27 H Blood Pressure Pulse Oximetry 93 Oxygen Delivery Method Room Air Oxygen Delivery Method Room Air Narrative Exam Narrative: Gen: somnolent after Haldol in ED, does awaken HEENT: NC/AT, pupils equal, face symmetric Neck: no enlarged LN or neck mass Lungs: clear to auscultation CV: irregularly irregular, rapid, no murmur Abd: soft, nt, no HSM Ext: non-edematous Neuro: hard to awaken, oriented to person only, no focal weakness Objective Labs 03/02/23 11:10 03/02/23 11:10 Labs: Laboratory Results - last 24 hr 03/02/23 03/02/23 03/02/23 11:10 11:10 11:10 WBC 16.8 H RBC 4.15 Hgb 13.8 Hct 42.2 MCV 101.9 H MCH 33.4 MCHC 32.7 RDW 14.1 Plt Count 342 Neut % (Auto) 63.5 Lymph % (Auto) 27.3 [place] % (Auto) 8.0 Eos % (Auto) 0.3 L Baso % (Auto) 0.9 Neut # (Auto) 09812 H Lymph # (Auto) 4600 H [place] # (Auto) 1300 H Eos # (Auto) 100 Baso # (Auto) 200 H PT 12.4 INR 1.1 APTT 27 Sodium 142 Potassium 4.4 Chloride 103 Carbon Dioxide 30 BUN 28 H Creatinine 1.09 H Estimated GFR 49 L BUN/Creatinine Ratio 25.7 H Glucose 155 H Lactate Calcium 9.7 Total Bilirubin 0.5 AST 49 H ALT 43 H Alkaline Phosphatase 118 Total Creatine Kinase 59 CK-MB (CK-2) TNP CK-MB (CK-2) Rel Index TNP Troponin I < 0.012 Total Protein 8.5 H Albumin 4.5 Globulin 4.0 Albumin/Globulin Ratio 1.1 Prolactin Urine Color Urine Appearance Urine pH Ur Specific [place] Urine Protein Urine Glucose (UA) Urine Ketones Urine Occult Blood Urine Nitrate Urine Bilirubin Urine Urobilinogen Ur Leukocyte Esterase Urine RBC Urine WBC Ur Squamous Epith Cells Urine Bacteria Ur Culture Indicated? CSF Tube Number CSF Volume CSF Appearance CSF Color CSF WBC CSF RBC CSF Mononuclear WBCs CSF Polynuclear WBCs CSF Glucose CSF Total Protein CSF C.neoform/gat PCR CSF CMV DNA (PCR) CSF Enterovirus (PCR) CSF E. coli (PCR) CSF H. influenzae (PCR) CSF HSV I (PCR) CSF HSV II (PCR) CSF HHV 6 (PCR) CSF L.monocytogenes PCR CSF N. meningitidis PCR CSF Parechovirus (PCR) CSF S. agalactiae (PCR) CSF S. pneumoniae (PCR) CSF VZV (PCR) Salicylates U Opiates 300ng/mL cut Ur Oxycodone Screen Urine Methadone Screen Acetaminophen Ur Barbiturates Screen U Tricyclic Antidepress Ur Phencyclidine Scrn Ur Amphetamines Screen U Methamphetamines Scrn Ur MDMA Scrn (Ecstasy) U Benzodiazepines Scrn Urine Cocaine Screen U Marijuana (THC) Screen Ethyl Alcohol < 10 03/02/23 03/02/23 03/02/23 11:10 11:10 11:35 WBC RBC Hgb Hct MCV MCH MCHC RDW Plt Count Neut % (Auto) Lymph % (Auto) [place] % (Auto) Eos % (Auto) Baso % (Auto) Neut # (Auto) Lymph # (Auto) [place] # (Auto) Eos # (Auto) Baso # (Auto) PT INR APTT Sodium Potassium Chloride Carbon Dioxide BUN Creatinine Estimated GFR BUN/Creatinine Ratio Glucose Lactate 4.4 H* Calcium Total Bilirubin AST ALT Alkaline Phosphatase Total Creatine Kinase CK-MB (CK-2) CK-MB (CK-2) Rel Index Troponin I Total Protein Albumin Globulin Albumin/Globulin Ratio Prolactin 43.2 H Urine Color Urine Appearance Urine pH Ur Specific [place] Urine Protein Urine Glucose (UA) Urine Ketones Urine Occult Blood Urine Nitrate Urine Bilirubin Urine Urobilinogen Ur Leukocyte Esterase Urine RBC Urine WBC Ur Squamous Epith Cells Urine Bacteria Ur Culture Indicated? CSF Tube Number CSF Volume CSF Appearance CSF Color CSF WBC CSF RBC CSF Mononuclear WBCs CSF Polynuclear WBCs CSF Glucose CSF Total Protein CSF C.neoform/gat PCR CSF CMV DNA (PCR) CSF Enterovirus (PCR) CSF E. coli (PCR) CSF H. influenzae (PCR) CSF HSV I (PCR) CSF HSV II (PCR) CSF HHV 6 (PCR) CSF L.monocytogenes PCR CSF N. meningitidis PCR CSF Parechovirus (PCR) CSF S. agalactiae (PCR) CSF S. pneumoniae (PCR) CSF VZV (PCR) Salicylates < 1.0 U Opiates 300ng/mL cut Negative Ur Oxycodone Screen Negative Urine Methadone Screen Negative Acetaminophen < 10 Ur Barbiturates Screen Negative U Tricyclic Antidepress Negative Ur Phencyclidine Scrn Negative Ur Amphetamines Screen Negative U Methamphetamines Scrn Negative Ur MDMA Scrn (Ecstasy) Negative U Benzodiazepines Scrn Negative Urine Cocaine Screen Negative U Marijuana (THC) Screen Negative Ethyl Alcohol 03/02/23 03/02/23 03/02/23 11:35 13:30 15:30 WBC RBC Hgb Hct MCV MCH MCHC RDW Plt Count Neut % (Auto) Lymph % (Auto) [place] % (Auto) Eos % (Auto) Baso % (Auto) Neut # (Auto) Lymph # (Auto) [place] # (Auto) Eos # (Auto) Baso # (Auto) PT INR APTT Sodium Potassium Chloride Carbon Dioxide BUN Creatinine Estimated GFR BUN/Creatinine Ratio Glucose Lactate 3.2 H Calcium Total Bilirubin AST ALT Alkaline Phosphatase Total Creatine Kinase CK-MB (CK-2) CK-MB (CK-2) Rel Index Troponin I Total Protein Albumin Globulin Albumin/Globulin Ratio Prolactin Urine Color Yellow Urine Appearance Sl cloudy Urine pH 6.0 Ur Specific [place] 1.020 Urine Protein 1+ H Urine Glucose (UA) Negative Urine Ketones Negative Urine Occult Blood Negative Urine Nitrate Negative Urine Bilirubin Negative Urine Urobilinogen 1.0 Ur Leukocyte Esterase Negative Urine RBC None seen Urine WBC 0-1/hpf Ur Squamous Epith Cells 0-1 /hpf Urine Bacteria None seen Ur Culture Indicated? Cult not indicated CSF Tube Number CSF Volume CSF Appearance CSF Color CSF WBC CSF RBC CSF Mononuclear WBCs CSF Polynuclear WBCs CSF Glucose CSF Total Protein CSF C.neoform/gat PCR Not detected CSF CMV DNA (PCR) Not detected CSF Enterovirus (PCR) Not detected CSF E. coli (PCR) Not detected CSF H. influenzae (PCR) Not detected CSF HSV I (PCR) Not detected CSF HSV II (PCR) Not detected CSF HHV 6 (PCR) Not detected CSF L.monocytogenes PCR Not detected CSF N. meningitidis PCR Not detected CSF Parechovirus (PCR) Not detected CSF S. agalactiae (PCR) Not detected CSF S. pneumoniae (PCR) Not detected CSF VZV (PCR) Not detected Salicylates U Opiates 300ng/mL cut Ur Oxycodone Screen Urine Methadone Screen Acetaminophen Ur Barbiturates Screen U Tricyclic Antidepress Ur Phencyclidine Scrn Ur Amphetamines Screen U Methamphetamines Scrn Ur MDMA Scrn (Ecstasy) U Benzodiazepines Scrn Urine Cocaine Screen U Marijuana (THC) Screen Ethyl Alcohol 03/02/23 15:30 WBC RBC Hgb Hct MCV MCH MCHC RDW Plt Count Neut % (Auto) Lymph % (Auto) [place] % (Auto) Eos % (Auto) Baso % (Auto) Neut # (Auto) Lymph # (Auto) [place] # (Auto) Eos # (Auto) Baso # (Auto) PT INR APTT Sodium Potassium Chloride Carbon Dioxide BUN Creatinine Estimated GFR BUN/Creatinine Ratio Glucose Lactate Calcium Total Bilirubin AST ALT Alkaline Phosphatase Total Creatine Kinase CK-MB (CK-2) CK-MB (CK-2) Rel Index Troponin I Total Protein Albumin Globulin Albumin/Globulin Ratio Prolactin Urine Color Urine Appearance Urine pH Ur Specific [place] Urine Protein Urine Glucose (UA) Urine Ketones Urine Occult Blood Urine Nitrate Urine Bilirubin Urine Urobilinogen Ur Leukocyte Esterase Urine RBC Urine WBC Ur Squamous Epith Cells Urine Bacteria Ur Culture Indicated? CSF Tube Number 3 CSF Volume 2.0 ml CSF Appearance Clear CSF Color Colorless CSF WBC 0 CSF RBC 222 CSF Mononuclear WBCs TNP CSF Polynuclear WBCs TNP CSF Glucose 78 H CSF Total Protein 75 H CSF C.neoform/gat PCR CSF CMV DNA (PCR) CSF Enterovirus (PCR) CSF E. coli (PCR) CSF H. influenzae (PCR) CSF HSV I (PCR) CSF HSV II (PCR) CSF HHV 6 (PCR) CSF L.monocytogenes PCR CSF N. meningitidis PCR CSF Parechovirus (PCR) CSF S. agalactiae (PCR) CSF S. pneumoniae (PCR) CSF VZV (PCR) Salicylates U Opiates 300ng/mL cut Ur Oxycodone Screen Urine Methadone Screen Acetaminophen Ur Barbiturates Screen U Tricyclic Antidepress Ur Phencyclidine Scrn Ur Amphetamines Screen U Methamphetamines Scrn Ur MDMA Scrn (Ecstasy) U Benzodiazepines Scrn Urine Cocaine Screen U Marijuana (THC) Screen Ethyl Alcohol Assessment & Plan Assessment & Plan narrative: 1. Possible seizure -pt found unresponsive and appears post-ictal, prior hx CVA and age inc risk of seizure -if seizure appears unprovoked, other etiologies such as head trauma, new CVA, metabolic derangement, LOCKER OPERATOR infection unlikely or ruled out -head CT without acute finding -elev prolactin -admit to obs, monitor neuro status -check Mg -brain MRI -consider discharge on anti-epileptic if no other explaining diagnosis is found (per upto date rec med if 1st unprovoked seizure in pt with prior brain injury) 2. Leukocytosis, -likely reactive, inc WBC but no left shift, nl UA, no fever or cough -check CXR--personally reviewed, I don't see definite infiltrate, per radi ologist report patchy rt base opacity -start abx if WBC not improving, pt has fever or develops cough -recheck in AM 3. Atrial fibrillation with RVR, chronic -pt may be slightly volume depleted -hydrate with IVF (500 cc bolus, 100 cc/hr x 1L) -metoprolol ER 100 qd x 1 then daily (pt's home dose) 4. Hypertension -cont lisinopril 5 mg qd and met ER 100 mg qd 5. Chronic pain -pt takes gabapentin 100 mg tid prn (usually once a day) and acetaminophen prn Code status: DNR, dtr will bring POLST DVT prevention: hep SQ Surrogate:dtr Quality VTE Deep Vein Thrombosis/Pulmonary Embolism Present on Admission: No
--- NOTE | 2023-03-02 18:20 | DI.RAD.S_ITS ---
PROCEDURE: XR CHEST 1V INDICATIONS: altered MS TECHNIQUE: One view of the chest was acquired. COMPARISON: [facility], CHEST 1 VIEW, 07/19/2016, 13:22. [facility], CHEST 1 VIEW, 03/01/2012, 21:55. FINDINGS: Surgical changes and devices: None. Lungs and pleura: Patchy right basilar airspace opacity. Mediastinum: Mediastinal contours appear normal. Heart size is normal. Bones and chest wall: No suspicious bony lesions. Overlying soft tissues appear unremarkable. IMPRESSION: Patchy right basilar airspace opacity, could represent infection, aspiration or atelectasis. Dictated by: Valentin Chan M.D. on 03/02/2023 at 19:10 Approved by: Valentin Chan M.D. on 03/02/2023 at 19:10
[2023-03-02] MEDS: METOPROLOL ER 50 MG TABLET 100 MG PO (18:57)
[2023-03-02] MEDS: SODIUM CHLORIDE 0.9% 500 ML 1000 ML IV (18:57)
[2023-03-02] MEDS: ACETAMINOPHEN 325 MG TABLET 650 MG PO (18:57)
[2023-03-02] MEDS: SODIUM CHLORIDE 0.9% 1,000 ML 100 ML IV (19:33)
[2023-03-02 20:34] LABS: MRSA (Nasal) PCR Not Detected (Not Detect)
[2023-03-02] MEDS: HEPARIN 5,000 UNIT/ML VIAL 5000 UNIT SUBCUT (20:55)
[2023-03-03] VITALS (30 sets, daily range): BP systolic 116–136; BP diastolic 55–65; PULSE 67–87; RESP 14–42; TEMP 36.1–36.6; O2SAT 92–98
[2023-03-03] MEDS: PIPERACILLIN/TAZO 3.375 GM in SODIUM CHLORIDE 0.9% 100 ML IV ×2 (02:07→09:49)
[2023-03-03 05:06] LABS: Add Manual Diff / Slide Review NO; Basophils Absolute Auto 0 /uL (0-100); Basophils Percent Auto 0.5 % (0-2); Eosinophils Absolute Auto 200 /uL (0-450); Eosinophils Percent Auto 2.2 % (2-4); Hematocrit 35.3 % (36-46); Hemoglobin 12.1 g/dL (12.0-16.0); Lymphocytes Absolute Auto 2100 /uL (1100-4500); Lymphocytes Percent Auto 22.5 % (25-40); Mean Corpuscular HGB Conc 34.3 % (30-36); Mean Corpuscular Hemoglobin 33.8 PG (26-34); Mean Corpuscular Volume 98.6 fL (80-100); Monocytes Absolute Auto 700 /uL (0-900); Monocytes Percent Auto 7.7 % (3-14); Neutrophils Absolute Auto 6200 /uL (1500-7000); Neutrophils Percent Auto 67.1 % (50-75); Platelet Count 256 X10^3/uL (150-400); Red Blood Cell Count 3.58 X10^6/uL (4.0-5.2); Red Cell Distribution Width 14.4 % (11.6-14.8); White Blood Cell Count 9.3 X10^3/uL (4.5-11.0)
[2023-03-03 05:14] LABS: Lactate (Lactic Acid) 1.3 mmol/L (0.7-2.1)
[2023-03-03 05:15] LABS: BUN Creatinine Ratio 26.1 (6-22); Blood Urea Nitrogen 23 mg/dL (7-17); Calcium 8.7 mg/dL (8.4-10.2); Carbon Dioxide 26 mmol/L (22-32); Chloride 107 mmol/L (98-107); Estimated Glomerular Filt Rate > 60 mL/min (>60); Glucose 104 mg/dL (80-110); HEMOLYSIS < 15 (0-50); Potassium 4.2 mmol/L (3.4-5.1); Sodium 137 mmol/L (137-145)
[2023-03-03 05:32] LABS: Procalcitonin 0.34 ng/mL (<0.5)
[2023-03-03] MEDS: PANTOPRAZOLE DR 20 MG TABLET PO (06:57)
[2023-03-03] MEDS: METOPROLOL ER 50 MG TABLET 100 MG PO (08:34)
[2023-03-03] MEDS: GABAPENTIN 100 MG CAPSULE PO (08:34)
[2023-03-03] MEDS: ACETAMINOPHEN 325 MG TABLET 650 MG PO (08:34)
[2023-03-03] MEDS: lisinopriL 5 MG TABLET PO (08:34)
--- NOTE | 2023-03-03 09:11 | P.DS_ITS ---
History of Present Illness History of Present Illness Date Patient Seen: 03/02/23 Time Patient Seen: 16:15 Chief complaint: unresponsiveness Narrative: 87 yo female history of cerebral amyloid angiopathy, dementia, hypertension, dyslipidemia, GERD, chronic atrial fibrillation, stroke x 2, anticoagulation stopped due to numcerous cerebral bleeds on MRI presents by EMS for evaluation of altered mental status. Last normal was at 0930. Reportedly she was found slum ped over at home by [employer] outside sales account representative. Grandson had earlier checked in on her an hour before. Patient lives alone but dtr, who is RN, or other family checks in on her multiple times a day. No known history of seizure. Pt unable to provide hx secondary to altered mentation. Pt reportedly falls frequently at home, refuses to use walker, and family notes poor memory recall. Family also note very poor oral intake. Dtr notes she has in the past been unresponsive at times which they've attributed to lack of food intake. In ED, afebrile, mildly tachycardic. head CT reportedly no acute findings. WBC 16.8 without left shift, Cr 1.09, gluc 155, lactate 3.2, prolactin 43. Urinalysis unremarkable. LP was done by ED physician - 0 WBC, gluc 78, prot 75 with nl CSF PCR panel. Noted in rapid afib further in ED stay. Discharge Providers Provider Date of admission: 03/02/23 16:17 Discharge Date: 03/03/23 Primary care physician: Miguel Sprague MD Consults: 03/02/23 18:10 Consult to Physical Therapy Evaluate & Treat Comment: Physician Instructions: Evaluate and Treat 03/03/23 11:43 Consult to Occupational Therapy Evaluate & Treat Comment: Assess for cognition/SLUMS Physician Instructions: Evaluate and treat Discharge provider: Guido Rizvi DO Summary Hospital Course Discharge Diagnosis: 1. Acute metabolic encephalopathy -pt found unresponsive and appears post-ictal, prior hx CVA and age inc risk of seizure -if seizure appears unprovoked, other etiologies such as head trauma, new CVA, metabolic derangement, RENDERING EQUIPMENT TENDER infection unlikely or ruled out -head CT without acute finding -elev prolactin -admit to obs, monitor neuro status -brain MRI cancelled due to patient's AMS resolved and she refused it -spoke with daughter about seizure meds and she preferred to not start them due to no definitive witnessed siezure. She believes patient was found altered due to not eating or drinnking enough 2. Leukocytosis, resolved -likely reactive, inc WBC but no left shift, nl UA, no fever or cough -per radiologist report patchy rt base opacity which may be atelectasis vs PNA, but patient has no symptoms of PNA -resolved to normal the next day without abx 3. Atrial fibrillation with RVR, chronic -pt may be slightly volume depleted -hydrate with IVF (500 cc bolus, 100 cc/hr x 1L) -metoprolol ER 100 qd x 1 then daily (pt's home dose) 4. Hypertension -cont lisinopril 5 mg qd and met ER 100 mg qd 5. Chronic pain -pt takes gabapentin 100 mg tid prn (usually once a day) and acetaminophen prn Hospital Course: Admitted after being found slumped over the couch and altered. This resolved spontaneously the next day and patient returned to her baseline. PT rec 03/04 assist at home. MRI brain cancelled due to patient spontaneously returning to her baseline mentation the next day. Seizure meds discussed with daughter given potential cause being siezure with post-ictal state, but daughter did not want to start antiepileptics. She was discharged home to her [facility]. Time Spent with Patient Time spent: Greater than 30 minutes Exam Vital Signs (past 8 hours): Oxygen Delivery Method Room Air Oxygen Flow Rate 0 Narrative Exam Narrative: Gen: somnolent after Haldol in ED, does awaken HEENT: NC/AT, pupils equal, face symmetric Neck: no enlarged LN or neck mass Lungs: clear to auscultation CV: irregularly irregular, rapid, no murmur Abd: soft, nt, no HSM Ext: non-edematous Neuro: hard to awaken, oriented to person only, no focal weakness Objective Labs 03/03/23 04:45 03/03/23 04:45 [facility] Medical History (Updated 03/02/23 @ 19:27 by Casey Rivera MD) Atrial fibrillation Dementia History of cerebral hemorrhage History of CVA with residual deficit Surgical History No pertinent past surgical history Social History household members: family caregiver/support person: Yes Smoking Status: Never smoker Discharge Plan Discharge Plan Patient Disposition: Home Discharge orders & Medications Prescriptions: Continued metoprolol succinate 100 mg tablet extended release 24 hr 100 mg PO DAILY Patient Comments: TAKE 1 TABLET BY MOUTH EVERY DAY omeprazole 20 mg capsule,delayed release(DR/EC) 20 mg PO DAILY Patient Comments: TAKE 1 CAPSULE BY MOUTH EVERY DAY 1 HOUR BEFORE MEALS lisinopril 5 mg tablet 5 mg PO DAILY Patient Comments: TAKE 1 TABLET BY MOUTH EVERY DAY gabapentin 100 mg capsule 100 mg TID PRN (Reason: Pain (Scale Score 1-3)) Follow up/Referrals: Miguel Sprague MD [Primary Care Provider] - 2 Weeks Visit Report/Discharge Packet Stand Alone Forms: Patient Portal/API, Stroke Signs & Symptoms Discharge Data Primary Care Provider: Miguel Sprague Attending Provider: Casey Rivera Admit Date/Time: 03/02/23 16:17 Discharges patient from system. Discharge Date/Time: 03/03/23 13:15 Quality VTE Deep Vein Thrombosis/Pulmonary Embolism Present on Admission: No
--- NOTE | 2023-03-03 11:19 | PT.IIE ---
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 Mobility and Gait Indep with cane per patient; medical records say patient refuses to use a walker. Hx of multiple falls. Activities of Daily Living and IADL's Daughter assists with meals. Patient stated she does her own bathing/dressing. Social History Household Members family Living Arrangements House Number of Floors (Floors) 3 or More Floors Number of Stairs To Enter/Railing? 3 steps to enter with rails Home Environment Tub/Shower Home Equipment Front Wheel Walker,Four Wheel Walker,Straight Cane Additional Social History Comment Patient's daughter initially present but then left the room , so history was obtained by patient who is not a reliable source. Patient's daughter is a nurse who apparently lives close by and family checks in frequently. M2 PT-IP Current Condition Start: 03/03/23 10:55 Freq: NEEDED Status: Active Protocol: Document 03/03/23 10:55 ES (Rec: 03/03/23 11:19 ES [id number]) Physical Therapy Current Condition Current Condition Evaluation Date 03/03/23 Treatment Diagnosis AMS, possible seizure, repeated falls Onset Date 03/02/23 M3 PT-IP Subjective Start: 03/03/23 10:55 Freq: NEEDED Status: Active Protocol: Document 03/03/23 10:55 ES (Rec: 03/03/23 11:19 ES [id number]) Subjective Physical Therapy Visit Type Type Initial Evaluation Visit Start Time 10:21 Visit Stop Time 10:52 Total Visit Minutes 31 Physical Therapy Visit Comments Patient Comments Patient alert in bed, daughter present initially. Patient initially refused to get out of bed, stating she didn't have her cane with her. Cane was presented to patient and with encouragement she was willing to get up to recliner in room. Therapy Pain Assessment Pain Present Pain Present Denied Pain M4 PT-IP Mobility and Gait Start: 03/03/23 10:55 Freq: NEEDED Status: Active Protocol: Document 03/03/23 10:55 ES (Rec: 03/03/23 11:19 ES [id number]) PT-Bed Mobility Assessment Supine to Sit Supine to Sit Standby Assistance,Head of Bed Elevated Scooting Scooting to Edge of Bed Standby Assistance PT-Transfer Assessment Sit to and From Stand Sit to and from Stand Contact Guard Assistance,Use of Upper Extremities Equipment Transfer Assistive Device Gait Belt,Front Wheeled Walker Transfers Transfer Destination Chair Transfer Technique Ambulated Transfer Ability Level of Assist Contact Guard Assistance Comments Mobility Comments Patient began impulsively attempting to sit up on L side of bed where the bed rail was up vs R side where IV located and rail was lowered. She was able to redirect after several cues. She required extra time to complete all tasks, along with frequent re- orientation to task. She was unsteady with all standing activity, requiring use of FWW for safety. Patient up in recliner at end of session with table placed in front and all belongings in reach. Recommended to RN to place chair alarm due to impulsivity . Gait Assessment Gait Gait Assistance Required: Contact Guard Assist Distance (Feet) 12 Assistive Devices Assistive Device Gait Belt,Front Wheeled Walker Gait Deviations General Gait Pattern Decreased Stride Length, Decreased Feet Clearance Factors Limiting Gait Function Factors Limiting Gait Function Poor Balance Comments Gait Comments Unsteadiness noted with turning. Decreased speed. Patient declined to ambulate further than the recliner this visit. Stair Climbing Assessment Comments Stair Climbing Comments Patient refused to leave room to attempt stairs. PT-Balance Assessment Sitting Balance and Reactions Static Sitting Balance Ability Good Dynamic Sitting Balance Ability Good Standing Balance and Reactions Static Standing Balance Ability Fair Dynamic Standing Balance Ability Fair Device Used FWW Functional Assessments Other Functional Tests Performed [facility] 6-clicks t-score =43.63 (>42.9 is predictive of home d /c) M5 PT-IP Objective Assessments Start: 03/03/23 10:55 Freq: NEEDED Status: Active Protocol: Document 03/03/23 10:55 ES (Rec: 03/03/23 11:19 ES [id number]) Orientation Orientation/Cognition Level of Alertness Confusional State Orientation Name Language Function Ability Hard of Hearing Safety Awareness Decreased Safety Awareness Memory Description Short Term Impaired Gross Range of Motion Upper Extremity ROM Assessment Within Functional Limits Lower Extremity ROM Assessment Within Functional Limits Strength Upper Extremity Strength Assessment Bilaterally Impaired Lower Extremity Strength Assessment Bilaterally Impaired Comments Strength Comments BUE/LE strength grossly 4/5 M6 PT-IP Treatment Start: 03/03/23 10:55 Freq: NEEDED Status: Active Protocol: Document 03/03/23 10:55 ES (Rec: 03/03/23 11:19 ES [id number]) Physical Therapy Treatment Education Education Provided Safety M7 PT-IP Assessment and Plan Start: 03/03/23 10:55 Freq: NEEDED Status: Active Protocol: Document 03/03/23 10:55 ES (Rec: 03/03/23 11:19 ES [id number]) PT Summary Assessment and Plan Potential Rehabilitation Potential Fair Status of Condition at Evaluation Unstable Summary Impairments Strength,Balance,Cognition,Bed Mobility,Transfers,Gait Assessment Summary Patient is a 87 year old female who presents with memory impairment, decreased strength, and decreased balance contributing to difficulty with bed mobility, transfers, and gait. She was easily agitated and was impulsive. She had poor recall of any instructions from therapist. She demonstrated unsteadiness with standing activity and required the use of FWW for safety. She is at high risk for falls and will need 24/ supervision if she is to return home. Goals Bed Mobility Goal Independent Transfer Goal Independent,Cane Gait Goal Independent,Cane Gait Distance 100 ft Other Goals Patient will be able to ascend /descend 12 stairs with rail and cane indep. Days to Meet Goals 7 Frequency of Treatment Frequency Of Treatment Once a Day Treatment Plan Physical Therapy Treatment Plan Bed Mobility Training,Transfer Training,Gait Training, Therapeutic Exercise,Balance Retraining,Discharge Planning, Neuromuscular Re-ed Precautions Other Precautions High fall risk Recommendations To Nursing Amount of Assist Needed 1 Person Assist Discharge Recommendations PT Discharge Recommendations Home with 24/7 Assist Available Other Discharge Recommendations 24/7 supervision Transportation Needs at Discharge Private Vehicle
--- NOTE | 2023-03-03 12:58 | OT.IP.EVAL ---
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 Mobility and Gait Indep with cane per patient; medical records say patient refuses to use a walker. Hx of multiple falls. Activities of Daily Living and IADL's Daughter assists with meals. Patient stated she does her own bathing/dressing. Social History Household Members family Living Arrangements House Number of Floors (Floors) 3 or More Floors Number of Stairs To Enter/Railing? ramp to enter and has a stair lift to the second floor Home Environment Tub/Shower Home Equipment Front Wheel Walker,Four Wheel Walker,Straight Cane Additional Social History Comment Patient's daughter is a nurse who apparently lives close by and family checks in frequently. Pt has a Life Alert. M2 OT-IP Current Condition Start: 03/03/23 12:57 Freq: Status: Discharge Protocol: Document 03/03/23 12:58 [facility] (Rec: 03/03/23 13:33 [facility] [id number]) Occupational Therapy Current Condition Current Condition Evaluation Date 03/03/23 Treatment Diagnosis Altered Mental Status Diagnosis Onset Date 03/02/23 M3 OT- IP Subjective and Pain Start: 03/03/23 12:57 Freq: Status: Discharge Protocol: Document 03/03/23 12:58 [facility] (Rec: 03/03/23 13:33 [facility] [id number]) OT- Subjective Occupational Therapy Visit Type Type Initial Evaluation Visit Start Time 12:15 Visit Stop Time 12:35 Total Visit Minutes 20 Occupational Therapy Visit Comments Patient Comments Pt wanting to go home. Pt's daughter in the room. Patient/Caregiver Goals TO go home. OT Pain Assessment Pain When Pain Assessed At Rest Pain Present Pain Present Denied Pain M4 OT- IP ADL's Start: 03/03/23 12:57 Freq: Status: Discharge Protocol: Document 03/03/23 12:58 [facility] (Rec: 03/03/23 13:33 [facility] [id number]) OT HBR-[id number] Comments OT Self-Feeding Comments Not at meal time. OT ADL-Grooming Comments OT Grooming Comments Not performed. OT ADL-Oral Care Comments Oral Care Comments Not performed. OT ADL-Dressing General Eval Upper Body Dressing Ability Standby Assistance Lower Body Dressing Ability Minimal Assistance Comments OT Dressing Comments Pt needing assist to help get her leggings/pants over her feet. OT ADL-Toileting Comments OT Toileting Comments Not performed. OT ADL-Bathing Comments OT Bathing Comments Per pt's daughter, pt no longer showers and just sponges off. M5 OT- IP IADL's Start: 03/03/23 12:57 Freq: Status: Discharge Protocol: Document 03/03/23 12:58 [facility] (Rec: 03/03/23 13:33 [facility] [id number]) OT-Instrumental Activities of Daily Living Deficits IADL Deficits Identified Deficits Home Safety Awareness Awareness of Need for Assistance at Home Decreased Awareness Ability to Problem Solve Emergency Unable to Problem Solve Situations Home Safety Comments Pt decreased safety awareness and balance and would benefit from 24/7 assist at home. Medication Management Medication Management Caregiver Administers Money Management Money Management Caregiver Provides Assistance Meal Preparation Meal Preparation Caregiver Provides Assist Meal Preparation Comments Pt's daughter has told her mom not to use the stove but at times pt will cook [employer] on her own and burn it at times. Hoe Worker Hoe Worker Caregiver Provides Assist Driving Driving Caregiver Provides Assist M6 OT- IP Functional Cognition Start: 03/03/23 12:57 Freq: Status: Discharge Protocol: Document 03/03/23 12:58 [facility] (Rec: 03/03/23 13:33 [facility] [id number]) Cognitive Factors Limiting Selfcare Function Cognitive Ability Level of Alertness Alert Patient Orientation Name Attention Span Ability Capable of Focused Attention, Capable of Sustained Attention Ability to Follow Commands Able to Follow One Step Commands Memory Description Short Term Impaired,Working Impaired Safety Awareness Underestimates Need for Assistance Problem Solving Ability Unable to Identify Errors, Needs Assist to Identify Solutions Cognitive Comments Cognitive Assessment Comments Pt's daughter states pt has already completed cognitive assessment before and did not do well. Pt's daughter knows that her mom is not safe, a fall risk, and aware would be best to have 24/7 supervision for her but unable to provide it for her. Pt's daughter states works, takes care of animals and can not stay with the pt but is frequently there. Pt's daughter states has a friend that can stay with her during the part of the day starting tomorrow. M7 OT- IP Mobility and Balance Start: 03/03/23 12:57 Freq: Status: Discharge Protocol: Document 03/03/23 12:58 [facility] (Rec: 03/03/23 13:33 [facility] [id number]) OT- Bed Mobility Assessment Supine to Sit Supine to Sit Assist Independent Sit to Supine Sit to Supine Assist Independent Scooting Scooting to Edge of Bed Standby Assistance OT-Transfer Assessment Sit to and From Stand Sit to and from Stand Contact Guard Assistance Transfers Transfer Ability Contact Guard Assistance Technique Transfer Destination Bed,Chair Transfer Technique Stand Step Pivot Devices Transfer Assistive Devices Gait Belt,Front Wheeled Walker Comments Mobility Comments Pt able to get out of bed her own. Coming to stand CGA due to coming to stand from a high bed. Pt ends up using the back of her legs against the bed to assist to stand. CGA for balance with FWW to transfer to the chair and unsteady on her feet with slight LOB. Pt's daughter states she falls frequently and furniture cruises at home. OT- Balance Assessment Sitting Balance and Reactions Static Sitting Balance Ability Good Dynamic Sitting Balance Ability Fair Standing Balance and Reactions Static Standing Balance Ability Poor Dynamic Standing Balance Ability Poor Comments Other Balance Tests/Deviations/Treatment Pt needing to hold to FWW to : stand and use of FWW for transfer. Pt very unsteady on her feet and is a high fall risk. M8 OT- IP Objective Assessments Start: 03/03/23 12:57 Freq: Status: Discharge Protocol: Document 03/03/23 12:58 [facility] (Rec: 03/03/23 13:33 [facility] [id number]) OT Gross Range of Motion Upper Extremity Range of Motion ROM Impairments grossly WFL OT Strength Comments Strength Comments BUE 4-/5 M9 OT- IP Assessment and Plan Start: 03/03/23 12:57 Freq: Status: Discharge Protocol: Document 03/03/23 12:58 [facility] (Rec: 03/03/23 13:33 [facility] [id number]) OT Summary Assessment and Plan Potential Rehabilitation Potential Fair Analytic Complexity at Evaluation Low Summary OT Impairments Strength,Balance,Functional Cognition,Functional Mobility, Dressing,Toileting,Bathing, Toilet Transfers,Shower Transfers,Activity Tolerance Progress Towards Goals Slow Progress due to Activity Tolerance,Slow Progress due to Cognition Assessment Summary Pt low complexity and main barriers are decreased safety awareness, balance, and a high fall risk and would benefit from 24/7 assist. Pt's daughter works and not able to be there 24/7 and knows that her mom is a high fall risks. Pt has a Life alert and to have someone come to the house to stay with her for part of the day starting tomorrow. Pt would benefit from home health and 24/7 available assist. Ideally pt would benefit from memory care. Goals Self-Feeding Goal Independent Grooming Goal Independent Dressing Goal Independent Toileting Goal Independent Bathing Goal Standby Assistance Toilet Transfer Goal Independent Shower Transfer Goal Standby Assistance Frequency of Treatment Frequency Of Treatment Once a Day Treatment Plan OT Treatment Plan ADL Training,Functional Cognition Training,Functional Mobility,Patient/Family Education,Discharge Planning Discharge Recommendations OT Discharge Recommendations Home with 24/7 Assist Available,Home Health Transportation Needs at Discharge Private Vehicle
== END 2023-03-03 13:15 | disposition home or self-care (01) ==
LOC: ED 11:47 → AC 16:17 → ICU 16:33
PROVIDERS: Internal Medicine; Admitting Provider Internal Medicine; Emergency Provider Emergency Medicine; Family Provider Family Medicine; PCP Family Medicine; Referring Provider Emergency Medicine; Visit Provider Internal Medicine
DX: R41.82 Altered mental status, unspecified (principal); I48.20 Chronic atrial fibrillation, unspecified; F03.90 Unspecified dementia, unspecified severity, without behavioral disturbance, psychotic disturbance, mood disturbance, and anxiety; D72.829 Elevated white blood cell count, unspecified; I10 Essential (primary) hypertension; G89.29 Other chronic pain
CPT/HCPCS: 36415; 51701; 62270; 70450; 71045; 80048; 80053; 80305; 80320; 80329; 81001; 82550; 82945; 82962; 83605; 83735; 84145; 84146; 84157; 84484; 85025; 85610; 85730; 87797; 87798; 89051; 93005; 96365; 96366; 96375; 96376; 97162; 97165; 99284; 99285; 99291; G0378; G0480; J1630; J1644; J2543

== ENCOUNTER 2023-03-06 19:50 | Emergency (ER) | payer MEDICARE, OTHER, SELFPAY ==
[2023-03-02 16:33] VITALS: BMI 20.2
[2023-03-06] VITALS (10 sets, daily range): BP systolic 161; BP diastolic 71; PULSE 81–96; RESP 18–31; TEMP 37; O2SAT 91–94; BMI 19.5
--- NOTE | 2023-03-06 20:20 | ED.BACK ---
HPI - Back Pain/Injury General Chief Complaint: Back Pain/Injury Stated Complaint: UTI, back pain Time Seen by Provider: 03/06/23 19:53 Source: patient and EMS History of Present Illness HPI Narrative: 87-year-old female nonsmoker with history of atrial fibrillation, formally on anticoagulation (reportedly no longer on Coumadin) with prior stroke and hemorrhagic conversion presents by EMS for evaluation of?urinary complaints and back pain. She had been seen and evaluated with extensive evaluation hospitalization recently with a diagnosis of acute metabolic encephalopathy with reassuring labs and imaging and was subsequently discharged. She has no headache or blurred vision. She is denying any chest pain or trouble breathing. She is no vomiting or diarrhea. She denies any trauma or injury. She has had no fever or chills Related Data Home Medications Medication Instructions Recorded Confirmed gabapentin 100 mg capsule 100 mg TID PRN Pain (Scale Score 03/02/23 03/02/23 1-3) lisinopril 5 mg tablet 5 mg PO DAILY 03/02/23 03/02/23 metoprolol succinate 100 mg 100 mg PO DAILY 03/02/23 03/02/23 tablet,extended release 24 hr omeprazole 20 mg capsule,delayed 20 mg PO DAILY 03/02/23 03/02/23 release Previous Rx's Medication Instructions Recorded cephalexin 500 mg capsule 500 mg PO BID #14 caps 03/07/23 Allergies Allergy/AdvReac Type Severity Reaction Status Date / Time No Known Drug Allergies Allergy Verified 09/29/18 12:37 Review of Systems Review of Systems Narrative: GENERAL: Denies chills, fatigue, malaise, fever, sweats. HEENT: Denies sinus pain, ear pain, sore throat, difficulty swallowing, dizziness. RESPIRATORY: Denies dyspnea, cough, wheezing, hemoptysis, sputum. CARDIOVASCULAR: Denies chest pain, palpitations, orthopnea, edema, GASTROINTESTINAL: Denies nausea, vomiting, abdominal pain, diarrhea, constipation, melena. : See HPI MUSCULOSKELETAL: See HPI SKIN: Denies rash, skin lesions, or other NEUROLOGIC: Denies weakness, headache, numbness, change in speech, confusion, seizures, incoordination. PSYCHIATRIC: No concerning psychosocial issues. 12 point review of systems is negative except for those stated above Patient History Medical History Atrial fibrillation Dementia History of cerebral hemorrhage History of CVA with residual deficit Surgical History No pertinent past surgical history Social History household members: family caregiver/support person: Yes Smoking Status: Never smoker Smoking Status: Never smoker alcohol intake frequency: 0-2 drinks per day Substance Use Type: does not use Exam Narrative Exam Narrative: GENERAL: [87] year old patient appears stated age. Well-developed patient, in mild distress. Pleasantly confused, GCS 14 HEAD: Atraumatic. Normocephalic. EYES: Pupils equal round and reactive. Extraocular motions intact. No scleral icterus. No injection or drainage. ENT: Nose without bleeding, purulent drainage. Throat without erythema, tonsillar hypertrophy or exudate. Airway patent. NECK: Trachea midline. Non tender CARDIOVASCULAR: Regular rate and rhythm without murmurs, gallops, or rubs. RESPIRATORY: Clear to auscultation. Breath sounds equal bilaterally. No wheezes, rales, or rhonchi. GASTROINTESTINAL: Abdomen soft, mild tenderness in epigastrium, nondistended. EXTREMITIES: No edema or joint tenderness. BACK: pin drafting machine tender but free of any obvious external abnormalities. Patient exam notes decreased range of motion and muscle spasm, but no CVA tenderness, or vertebral point tenderness. There are no symptoms of cauda equina such as saddle anesthesia, and decreased reflexes, decreased sensation or strength. NEURO: AOx3. SKIN: No rash or erythema of visible areas Initial Vital Signs Initial Vital Signs: Vital Signs Pulse Rate 87 03/06/23 19:46 Pulse Oximetry 91 03/06/23 19:46 Course Orders Ordered: ED Orders 03/06/23 20:45 Complete Blood Count AUTO DIFF Stat Comprehensive Metabolic Panel Stat Lactate (Lactic Acid) Stat Lipase Stat Magnesium Stat 03/06/23 22:00 Urine Culture Stat Urine Microscopic Stat 03/06/23 23:39 US abdomen limited Stat Discontinued Medications Sodium Chloride (Normal Saline 0.9%) 1,000 mls @ 1,000 mls/hr IV BOLUS ONE Stop: 03/06/23 23:54 Last Infusion: 03/07/23 00:06 Dose: 0 mls/hr Documented By: Admin: 03/06/23 23:00 Dose: 1,000 mls/hr Documented By: SUKH Ceftriaxone Sodium 1,000 mg/ (Sodium Chloride) 100 mls @ 200 mls/hr IV NOW ONE Stop: 03/07/23 00:50 Last Infusion: 03/07/23 02:08 Dose: 0 mls/hr Documented By: Admin: 03/07/23 01:28 Dose: 200 mls/hr Documented By: SUKH Vital Signs Vital signs: Vital Signs - 8 hr 03/06/23 21:30 03/06/23 22:00 03/06/23 22:30 Temperature Pulse Rate 94 H 87 85 Respiratory Rate 20 18 31 H Blood Pressure Pulse Oximetry 91 93 93 03/06/23 23:00 03/06/23 23:30 03/07/23 00:00 Temperature Pulse Rate 82 81 79 Respiratory Rate 24 21 15 Blood Pressure Pulse Oximetry 94 93 91 03/07/23 00:30 03/07/23 01:00 03/07/23 01:30 Temperature Pulse Rate 83 71 70 Respiratory Rate 22 21 18 Blood Pressure Pulse Oximetry 91 96 98 03/07/23 02:00 03/07/23 02:10 03/07/23 02:10 Temperature 98.4 F Pulse Rate 75 69 Respiratory Rate 18 Blood Pressure 151/72 H Pulse Oximetry 97 99 MDM - Back Pain/Injury Lab Data 03/06/23 20:45 03/06/23 20:45 Labs: Lab Results 03/06/23 03/06/23 03/06/23 Range/Units 20:45 20:45 20:45 WBC 12.3 H (4.5-11.0) X10^3/uL RBC 3.43 L (4.0-5.2) X10^6/uL Hgb 11.5 L (12.0-16.0) g/dL Hct 34.3 L (36-46) % MCV 100.0 (80-100) fL MCH 33.4 (26-34) PG MCHC 33.4 (30-36) % RDW 14.1 (11.6-14.8) % Plt Count 265 (150-400) X10^3/uL Neut % (Auto) 74.4 (50-75) % Lymph % (Auto) 12.8 L (25-40) % [place] % (Auto) 9.0 (3-14) % Eos % (Auto) 3.2 (2-4) % Baso % (Auto) 0.6 (0-2) % Neut # (Auto) 9200 H (7095-7063) /uL Lymph # (Auto) 1600 (1668-2468) /uL [place] # (Auto) 1100 H (0-900) /uL Eos # (Auto) 400 (0-450) /uL Baso # (Auto) 100 (0-100) /uL Sodium 137 (137-145) mmol/L Potassium 4.5 (3.4-5.1) mmol/L Chloride 104 (98-107) mmol/L Carbon Dioxide 26 (22-32) mmol/L BUN 23 H (7-17) mg/dL Creatinine 0.77 (0.52-1.04) mg/dL Estimated GFR > 60 (>60) mL/min BUN/Creatinine Ratio 29.9 H (6-22) Glucose 116 H (80-110) mg/dL Lactate 1.3 (0.7-2.1) mmol/L Calcium 9.4 (8.4-10.2) mg/dL Magnesium 1.8 (1.6-2.3) mg/dL Total Bilirubin 0.5 (0.2-1.3) mg/dL AST 82 H (14-36) IU/L ALT 89 H (<35) IU/L Alkaline Phosphatase 165 H (38-126) U/L Total Protein 7.2 (6.3-8.2) g/dL Albumin 3.7 (3.5-5.0) g/dL Globulin 3.5 (1.7-4.1) g/dL Albumin/Globulin Ratio 1.1 (1.0-2.8) Lipase 182 (23-300) U/L Urine RBC (0-5/HPF) Urine WBC (0-5/HPF) Ur Squamous Epith Cells (0-5/HPF) Urine Bacteria (None) 03/06/23 Range/Units 22:00 WBC (4.5-11.0) X10^3/uL RBC (4.0-5.2) X10^6/uL Hgb (12.0-16.0) g/dL Hct (36-46) % MCV (80-100) fL MCH (26-34) PG MCHC (30-36) % RDW (11.6-14.8) % Plt Count (150-400) X10^3/uL Neut % (Auto) (50-75) % Lymph % (Auto) (25-40) % [place] % (Auto) (3-14) % Eos % (Auto) (2-4) % Baso % (Auto) (0-2) % Neut # (Auto) (8903-4040) /uL Lymph # (Auto) (1691-1804) /uL [place] # (Auto) (0-900) /uL Eos # (Auto) (0-450) /uL Baso # (Auto) (0-100) /uL Sodium (137-145) mmol/L Potassium (3.4-5.1) mmol/L Chloride (98-107) mmol/L Carbon Dioxide (22-32) mmol/L BUN (7-17) mg/dL Creatinine (0.52-1.04) mg/dL Estimated GFR (>60) mL/min BUN/Creatinine Ratio (6-22) Glucose (80-110) mg/dL Lactate (0.7-2.1) mmol/L Calcium (8.4-10.2) mg/dL Magnesium (1.6-2.3) mg/dL Total Bilirubin (0.2-1.3) mg/dL AST (14-36) IU/L ALT (<35) IU/L Alkaline Phosphatase (38-126) U/L Total Protein (6.3-8.2) g/dL Albumin (3.5-5.0) g/dL Globulin (1.7-4.1) g/dL Albumin/Globulin Ratio (1.0-2.8) Lipase (23-300) U/L Urine RBC None seen (0-5/HPF) Urine WBC 1-5/hpf (0-5/HPF) Ur Squamous Epith Cells >30 /hpf H D (0-5/HPF) Urine Bacteria Few (2-10) H (None) Urine Dip Bedside Urine Glucose Negative Bedside Urine Bilirubin - Negative Bedside Urine Ketone - Negative Urine Specific [place] 1.010 Bedside Urine Occult Blood - Negative Bedside Urine pH 6.0 Bedside Urine Protein - Negative Bedside Urine Urobilinogen - Negative Bedside Urine Nitrite - Negative Bedside Urine Leukocytes + 70 Esterase MDM Narrative Medical decision making narrative: [87] year old patient presents with urinary complaints and flank pain Multiple etiologies for patient's symptoms considered including, but not limited to: [UTI versus gallbladder disease versus musculoskeletal versus other] Prior Charts reviewed in our EMR Primary Historian: patient Labs reviewed and interpreted by myself: Slight leukocytosis without true left shift, no anemia requiring transfusion, electrolytes within normal limits, urine demonstrates likely UTI, LFTs slightly elevated Imaging reviewed: Gallbladder ultrasound unremarkable Patient's symptoms improved over duration of stay with above-stated therapies. Findings and discharge diagnosis discussed with patient/family followed by verbalization of understanding Return precautions discussed with patient/family whom verbalize understanding of diagnosis and plan Discharge Plan Departure Patient Disposition: Home Clinical Impression: Acute UTI Instructions: DI for Urinary Tract Infection (UTI) Activity Restrictions/Additional Instructions: *You have been diagnosed with [urinary tract infection] *What to do: *Please continue to take your regular medications as directed. [x ] New medication prescriptions sent to your pharmacy: [[facility] in [place] ] [ ] New medication written as a paper prescription [ ] No new medications given *Please follow up with your primary care provider in 2-3 days, call for an appointment. Let them know you were seen in the Emergency Department and that we ask that you be seen in follow up. We will electronically transmit a record of today's note if your PCP is in our system *If you do not have a primary care provider please contact the [facility] Resource line at [phone]. They will ask some questions about your medical history and help get you set up with a doctor in the community. *Return to Emergency Department if you should have any new, worsening or concerning symptoms, such as [fever greater than 101 F, shaking chills, worsening pain, persistent vomiting or other bothersome symptoms] Prescriptions: New cephalexin 500 mg capsule 500 mg PO BID Qty: 14 0RF No Action metoprolol succinate 100 mg tablet extended release 24 hr 100 mg PO DAILY Patient Comments: TAKE 1 TABLET BY MOUTH EVERY DAY omeprazole 20 mg capsule,delayed release(DR/EC) 20 mg PO DAILY Patient Comments: TAKE 1 CAPSULE BY MOUTH EVERY DAY 1 HOUR BEFORE MEALS lisinopril 5 mg tablet 5 mg PO DAILY Patient Comments: TAKE 1 TABLET BY MOUTH EVERY DAY gabapentin 100 mg capsule 100 mg TID PRN (Reason: Pain (Scale Score 1-3)) Referrals: Miguel Sprague MD [Primary Care Provider] - Stand Alone Forms: Patient Portal/API
[2023-03-06 20:56] LABS: Add Manual Diff / Slide Review NO; Basophils Absolute Auto 100 /uL (0-100); Basophils Percent Auto 0.6 % (0-2); Eosinophils Absolute Auto 400 /uL (0-450); Eosinophils Percent Auto 3.2 % (2-4); Hematocrit 34.3 % (36-46); Hemoglobin 11.5 g/dL (12.0-16.0); Lymphocytes Absolute Auto 1600 /uL (1100-4500); Lymphocytes Percent Auto 12.8 % (25-40); Mean Corpuscular HGB Conc 33.4 % (30-36); Mean Corpuscular Hemoglobin 33.4 PG (26-34); Monocytes Absolute Auto 1100 /uL (0-900); Neutrophils Absolute Auto 9200 /uL (1500-7000); Neutrophils Percent Auto 74.4 % (50-75); Platelet Count 265 X10^3/uL (150-400); Red Blood Cell Count 3.43 X10^6/uL (4.0-5.2); Red Cell Distribution Width 14.1 % (11.6-14.8); White Blood Cell Count 12.3 X10^3/uL (4.5-11.0)
[2023-03-06 21:07] LABS: Alanine Aminotransferase 89 IU/L (<35); Albumin 3.7 g/dL (3.5-5.0); Albumin Globulin Ratio 1.1 (1.0-2.8); Alkaline Phosphatase 165 U/L (38-126); Aspartate Aminotransferase 82 IU/L (14-36); BUN Creatinine Ratio 29.9 (6-22); Bilirubin Total 0.5 mg/dL (0.2-1.3); Blood Urea Nitrogen 23 mg/dL (7-17); Calcium 9.4 mg/dL (8.4-10.2); Carbon Dioxide 26 mmol/L (22-32); Chloride 104 mmol/L (98-107); Estimated Glomerular Filt Rate > 60 mL/min (>60); Globulin 3.5 g/dL (1.7-4.1); Glucose 116 mg/dL (80-110); HEMOLYSIS < 15 (0-50); Lactate (Lactic Acid) 1.3 mmol/L (0.7-2.1); Lipase 182 U/L (23-300); Magnesium 1.8 mg/dL (1.6-2.3); Potassium 4.5 mmol/L (3.4-5.1); Sodium 137 mmol/L (137-145); Total Protein 7.2 g/dL (6.3-8.2)
[2023-03-06] MEDS: SODIUM CHLORIDE 0.9% 1,000 ML 1000 ML IV (23:00)
--- NOTE | 2023-03-06 23:39 | DI.US.S_ITS ---
PROCEDURE: US ABDOMEN LIMITED INDICATIONS: RUQ pain, elevated LFTs TECHNIQUE: Real-time focused scanning was performed of the abdomen, with image documentation. COMPARISON: CT, CT ABDOMEN PELVIS W CON, 04/01/2022, 22:51. FINDINGS: Liver measures 11.9 cm. Gallbladder demonstrates no stones. Wall thickness is normal measuring 1.5 mm. Common bile duct measures 4.2 mm. IMPRESSION: Unremarkable exam. Dictated by: Fang Donnelly M.D. on 03/07/2023 at 1:05 Approved by: Fang Donnelly M.D. on 03/07/2023 at 1:05
[2023-03-07] VITALS: PULSE 79; RESP 15; O2SAT 91
[2023-03-07 00:30] VITALS: PULSE 83; RESP 22; O2SAT 91
[2023-03-07 01:00] VITALS: PULSE 71; RESP 21; O2SAT 96
[2023-03-07] MEDS: cefTRIAXone 1,000 MG in SODIUM CHLORIDE 0.9% 100 ML 200 MG IV (01:28)
[2023-03-07 01:30] VITALS: PULSE 70; RESP 18; O2SAT 98
[2023-03-07 02:00] VITALS: PULSE 75; O2SAT 97
[2023-03-07 02:10] VITALS: BP 151/72; PULSE 69; RESP 18; TEMP 36.9; O2SAT 99
[2023-03-07 03:19] LABS: Bacteria Urine Few (2-10); RBC Urine None Seen (0-5/HPF); Squamous Epithelial Cell Urine >30 /HPF (0-5/HPF); WBC Urine 1-5/HPF (0-5/HPF)
== END 2023-03-07 02:20 | disposition home or self-care (01) ==
PROVIDERS: Emergency Provider Emergency Medicine; Family Provider Family Medicine; PCP Family Medicine
DX: N39.0 Urinary tract infection, site not specified (principal)
CPT/HCPCS: 36415; 76705; 80053; 81003; 81015; 83605; 83690; 83735; 85025; 87077; 87086; 87186; 96365; 99284; J0696

== ENCOUNTER 2023-03-12 09:52 | Emergency (ER) | payer MEDICARE, OTHER, SELFPAY ==
[2023-03-02 16:33] VITALS: BMI 20.2
[2023-03-12] VITALS (11 sets, daily range): BP systolic 125–183; BP diastolic 78–104; PULSE 78–92; RESP 11–28; TEMP 36.9; O2SAT 91–97
--- NOTE | 2023-03-12 10:11 | ED.GENADULT ---
HPI - General Adult General Chief complaint: Weakness Stated complaint: can't stand or walk, pain Time Seen by Provider: 03/12/23 09:55 Source: patient and family Mode of arrival: Wheelchair Limitations: no limitations History of Present Illness HPI narrative: Patient is an 79-year-old female. Has a history of atrial fibrillation. Has also had a history of CVA with residual right-sided deficit. Is here with family. They also state that she has a history of vascular dementia. Over the past couple days she is had a decline in her ability to move around and ambulate. She is been having back pain without a specific inciting incident. She was seen here in the emergency department a couple days ago where she had a workup that resulted in a diagnosis of a urinary tract infection. She is been on Keflex. Family state that despite the antibiotics she continues to have issues with mobility to the point now she can not stand up and get around. She has taken Tylenol and gabapentin but no other pain medication. Patient states that it is her ?whole back? that hurts. Family also states she is having incontinence of urine which is new. Related Data Home Medications Medication Instructions Recorded Confirmed gabapentin 100 mg capsule 100 mg TID PRN Pain (Scale Score 03/02/23 03/02/23 1-3) lisinopril 5 mg tablet 5 mg PO DAILY 03/02/23 03/02/23 metoprolol succinate 100 mg 100 mg PO DAILY 03/02/23 03/02/23 tablet,extended release 24 hr omeprazole 20 mg capsule,delayed 20 mg PO DAILY 03/02/23 03/02/23 release Previous Rx's Medication Instructions Recorded cephalexin 500 mg capsule 500 mg PO BID #14 caps 03/07/23 hydrocodone 5 mg-acetaminophen 325 1 tab PO Q4-6H PRN pain #20 tabs 03/12/23 mg tablet lidocaine 5 % topical patch 1 patch topical DAILY #15 ea 03/12/23 Allergies Allergy/AdvReac Type Severity Reaction Status Date / Time No Known Drug Allergies Allergy Verified 09/29/18 12:37 Review of Systems Review of Systems Narrative: Provided by patient and family Constitutional Constitutional: Reports system reviewed and no additional complaints, except as documented Cardiovascular Cardiovascular: Reports system reviewed and no additional complaints, except as documented Respiratory Respiratory: Reports system reviewed and no additional complaints, except as documented Gastrointestinal Gastrointestinal: Reports system reviewed and no additional complaints, except as documented Musculoskeletal Musculoskeletal: Reports system reviewed and no additional complaints, except as documented Integumentary/Breasts Skin/Breast: Reports system reviewed and no additional complaints, except as documented Neurologic Neurologic: Reports system reviewed and no additional complaints, except as documented Patient History Medical History Atrial fibrillation Dementia History of cerebral hemorrhage History of CVA with residual deficit Surgical History No pertinent past surgical history Social History household members: family caregiver/support person: Yes Smoking Status: Never smoker Smoking Status: Never smoker alcohol intake frequency: 0-2 drinks per day Substance Use Type: does not use Exam Initial Vital Signs Initial Vital Signs: Vital Signs Temperature 98.4 F 03/12/23 09:59 Respiratory Rate 16 03/12/23 09:59 Blood Pressure 182/104 H 03/12/23 09:59 Pulse Oximetry 97 03/12/23 09:59 Oxygen Delivery Method Room Air 03/12/23 09:59 Const General: cooperative HENMT Head: normal to inspection and normocephalic Resp Effort & Inspection: normal respiratory effort Auscultation: clear to auscultation bilaterally Cardio Rate: regular rate Rhythm: abnormal rhythm GI Inspection: normal to inspection and non-distended Back/Spine/Pelvis Back: normal to inspection Cervical Spine: No cervical spinal tenderness Thoracic/Lumbar Spine: paraspinal tenderness (Lumbar region), No thoracic spinal tenderness and lumbar spinal tenderness Skin General: no rashes or lesions noted Neuro General: patient alert, patient awake and moves all extremities Extrem General: capillary refill normal Course Orders Ordered: ED Orders 03/12/23 10:12 XR lumbar spine 2-3V Stat 03/12/23 10:34 Complete Blood Count AUTO DIFF Stat Comprehensive Metabolic Panel Stat Lipase Stat Discontinued Medications Hydrocodone Bitart/Acetaminophen (Hydrocodone/Acet 5/325 Tablet) 1 tab PO NOW ONE Stop: 03/12/23 10:13 Last Admin: 03/12/23 10:19 Dose: 1 tab Documented By: NR Vital Signs Vital signs: Vital Signs - 8 hr 03/12/23 09:59 03/12/23 10:03 03/12/23 10:20 Temperature 98.4 F Pulse Rate 90 87 Respiratory Rate 16 17 25 H Blood Pressure 182/104 H Pulse Oximetry 97 92 Oxygen Delivery Method Room Air 03/12/23 10:20 03/12/23 10:30 03/12/23 11:00 Temperature Pulse Rate 92 H 86 Respiratory Rate 28 H 17 Blood Pressure 183/95 H Pulse Oximetry 94 91 Oxygen Delivery Method 03/12/23 11:30 03/12/23 12:00 03/12/23 12:30 Temperature Pulse Rate 85 83 88 Respiratory Rate 11 L 12 20 Blood Pressure Pulse Oximetry Oxygen Delivery Method 03/12/23 12:47 03/12/23 12:47 03/12/23 13:00 Temperature Pulse Rate 87 Respiratory Rate 20 Blood Pressure 132/103 H 125/98 H Pulse Oximetry Oxygen Delivery Method 03/12/23 13:00 03/12/23 13:30 03/12/23 13:30 Temperature Pulse Rate 83 78 Respiratory Rate 21 17 Blood Pressure 133/78 Pulse Oximetry Oxygen Delivery Method Medical Decision Making Lab Data Lab results reviewed: Yes I reviewed the patient's lab results. 03/12/23 10:34 03/12/23 10:34 Labs: Lab Results 03/12/23 03/12/23 Range/Units 10:34 10:34 WBC 6.7 (4.5-11.0) X10^3/uL RBC 3.60 L (4.0-5.2) X10^6/uL Hgb 11.9 L (12.0-16.0) g/dL Hct 35.6 L (36-46) % MCV 99.0 (80-100) fL MCH 33.2 (26-34) PG MCHC 33.5 (30-36) % RDW 14.6 (11.6-14.8) % Plt Count 373 (150-400) X10^3/uL Neut % (Auto) 63.2 (50-75) % Lymph % (Auto) 25.3 (25-40) % [place] % (Auto) 8.6 (3-14) % Eos % (Auto) 2.2 (2-4) % Baso % (Auto) 0.7 (0-2) % Neut # (Auto) 4200 (6894-7590) /uL Lymph # (Auto) 1700 (9498-5589) /uL [place] # (Auto) 600 (0-900) /uL Eos # (Auto) 100 (0-450) /uL Baso # (Auto) 0 (0-100) /uL Sodium 139 (137-145) mmol/L Potassium 4.5 (3.4-5.1) mmol/L Chloride 102 (98-107) mmol/L Carbon Dioxide 31 (22-32) mmol/L BUN 23 H (7-17) mg/dL Creatinine 0.76 (0.52-1.04) mg/dL Estimated GFR > 60 (>60) mL/min BUN/Creatinine Ratio 30.3 H (6-22) Glucose 95 (80-110) mg/dL Calcium 9.6 (8.4-10.2) mg/dL Total Bilirubin 0.6 (0.2-1.3) mg/dL AST 35 (14-36) IU/L ALT 50 H (<35) IU/L Alkaline Phosphatase 225 H (38-126) U/L Total Protein 7.8 (6.3-8.2) g/dL Albumin 4.0 (3.5-5.0) g/dL Globulin 3.8 (1.7-4.1) g/dL Albumin/Globulin Ratio 1.1 (1.0-2.8) Lipase 113 (23-300) U/L Imaging Data lumbar spine: Radiologist's Impression: PROCEDURE:? XR LUMBAR SPINE 2-3V ? INDICATIONS:? LBP ? TECHNIQUE:? 3 views of the lumbar spine were acquired.? ? COMPARISON:? None. ? FINDINGS:? ? Bones:? 5 [id number] vertebrae are present.? There is normal bony alignment.? No vertebral body compression fractures.? No suspicious bony lesions.? S shaped curvature of the thoracolumbar spine.? Multilevel degenerative changes.? Disc space narrowing at L4-5. ?Grade 1 anterolisthesis of L3-4 likely due to underlying facet arthrosis.? Degenerative changes of the right sacroiliac joint. ? Soft tissues:? Overlying bowel gas pattern is normal.? No suspicious soft tissue calcifications.? The aorta has atherosclerotic calcifications with no aneurysmal dilatation. ? ? IMPRESSION:? 1. 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 2. Right sacroiliac joint degenerative changes. 3. S shaped curvature of the thoracolumbar spine. [facility] Narrative Medical decision making narrative: After pain medication the patient was able to stand up. She did walk to the bathroom using a walker. She was able to get up off the toilet. She was not complaining of back discomfort. Her x-ray shows no acute pathology. I have low suspicion for pyelonephritis. No abdominal pain. They have only been given the patient gabapentin and Tylenol at home. The hydrocodone seem to work here in the ER so the plan abuse to send her home with a prescription for hydrocodone. Also sent home with a prescription for lidocaine patches. Patient will need to follow-up with her primary doctor. Discharge Plan Departure Patient Disposition: Home Clinical Impression: Lower back pain Instructions: DI for Low Back Pain Activity Restrictions/Additional Instructions: I do recommend that she continues to take the antibiotics she received here in the emergency department during her last visit. She can use the pain medicine as needed. She can also use the lidocaine patches as needed as well. I do recommend that she contact her primary doctor for a follow-up. The medications were sent to [facility]. Prescriptions: New hydrocodone-acetaminophen 5-325 mg tablet 1 tab PO Q4-6H PRN (Reason: pain) Qty: 20 0RF lidocaine 5 % adhesive patch,medicated 1 patch topical DAILY Qty: 15 0RF Rx Instructions: leave on most painful area for up to 12 hrs No Action metoprolol succinate 100 mg tablet extended release 24 hr 100 mg PO DAILY Patient Comments: TAKE 1 TABLET BY MOUTH EVERY DAY omeprazole 20 mg capsule,delayed release(DR/EC) 20 mg PO DAILY Patient Comments: TAKE 1 CAPSULE BY MOUTH EVERY DAY 1 HOUR BEFORE MEALS lisinopril 5 mg tablet 5 mg PO DAILY Patient Comments: TAKE 1 TABLET BY MOUTH EVERY DAY gabapentin 100 mg capsule 100 mg TID PRN (Reason: Pain (Scale Score 1-3)) cephalexin 500 mg capsule 500 mg PO BID Qty: 14 0RF Referrals: Miguel Sprague MD [Primary Care Provider] - Stand Alone Forms: Patient Portal/API
--- NOTE | 2023-03-12 10:12 | DI.RAD.S_ITS ---
PROCEDURE: XR LUMBAR SPINE 2-3V INDICATIONS: LBP TECHNIQUE: 3 views of the lumbar spine were acquired. COMPARISON: None. FINDINGS: Bones: 5 [id number] vertebrae are present. There is normal bony alignment. No vertebral body compression fractures. No suspicious bony lesions. S shaped curvature of the thoracolumbar spine. Multilevel degenerative changes. Disc space narrowing at L4-5. Grade 1 anterolisthesis of L3-4 likely due to underlying facet arthrosis. Degenerative changes of the right sacroiliac joint. Soft tissues: Overlying bowel gas pattern is normal. No suspicious soft tissue calcifications. The aorta has atherosclerotic calcifications with no aneurysmal dilatation. IMPRESSION: 1. 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 2. Right sacroiliac joint degenerative changes. 3. S shaped curvature of the thoracolumbar spine. Dictated by: Brian Chase M.D. on 03/12/2023 at 10:52 Approved by: Brian Chase M.D. on 03/12/2023 at 10:54
--- NOTE | 2023-03-12 10:14 | PC.NURSE ---
family and patient report that patient had sudden increase in her back pain to a severe unmanagable amount in the last 7 days. also reports wheezing that started yesterday, and lower leg swelling that started 3 days ago. pt has history of Afib and does not take a blood thinner for this due to past hx of brain bleeds. does not take an antiarrhythmic for this. provider notified of pt heart rate jumping from 80-120. pt has been seeing a pcp for pain but family decided it was too much and needs to be addressed today
[2023-03-12] MEDS: HYDROCODONE/ACET 5/325 TABLET 1 TAB PO (10:19)
[2023-03-12 10:46] LABS: Add Manual Diff / Slide Review NO; Basophils Absolute Auto 0 /uL (0-100); Basophils Percent Auto 0.7 % (0-2); Eosinophils Absolute Auto 100 /uL (0-450); Eosinophils Percent Auto 2.2 % (2-4); Hematocrit 35.6 % (36-46); Hemoglobin 11.9 g/dL (12.0-16.0); Lymphocytes Absolute Auto 1700 /uL (1100-4500); Lymphocytes Percent Auto 25.3 % (25-40); Mean Corpuscular HGB Conc 33.5 % (30-36); Mean Corpuscular Hemoglobin 33.2 PG (26-34); Monocytes Absolute Auto 600 /uL (0-900); Monocytes Percent Auto 8.6 % (3-14); Neutrophils Absolute Auto 4200 /uL (1500-7000); Neutrophils Percent Auto 63.2 % (50-75); Platelet Count 373 X10^3/uL (150-400); Red Cell Distribution Width 14.6 % (11.6-14.8); White Blood Cell Count 6.7 X10^3/uL (4.5-11.0)
[2023-03-12 10:53] LABS: Alanine Aminotransferase 50 IU/L (<35); Albumin Globulin Ratio 1.1 (1.0-2.8); Alkaline Phosphatase 225 U/L (38-126); Aspartate Aminotransferase 35 IU/L (14-36); BUN Creatinine Ratio 30.3 (6-22); Bilirubin Total 0.6 mg/dL (0.2-1.3); Blood Urea Nitrogen 23 mg/dL (7-17); Calcium 9.6 mg/dL (8.4-10.2); Carbon Dioxide 31 mmol/L (22-32); Chloride 102 mmol/L (98-107); Estimated Glomerular Filt Rate > 60 mL/min (>60); Globulin 3.8 g/dL (1.7-4.1); Glucose 95 mg/dL (80-110); HEMOLYSIS < 15 (0-50); Lipase 113 U/L (23-300); Potassium 4.5 mmol/L (3.4-5.1); Sodium 139 mmol/L (137-145); Total Protein 7.8 g/dL (6.3-8.2)
== END 2023-03-12 14:00 | disposition home or self-care (01) ==
PROVIDERS: Emergency Provider Emergency Medicine; Family Provider Family Medicine; PCP Family Medicine
DX: M54.50 Low back pain, unspecified (principal); R32 Unspecified urinary incontinence
CPT/HCPCS: 36415; 51798; 72100; 80053; 83690; 85025; 99284